=== PATIENT | male | born 1965 | race Caucasian/White ===

== ENCOUNTER 2018-03-25 14:20 | Inpatient (IN) | payer MEDICAID ==
[2018-03-25] VITALS (22 sets, daily range): BP systolic 91–203; BP diastolic 61–120
[~2018-03-25] VITALS: Ht 182.9 cm; Wt 94.3 kg
--- NOTE | 2018-03-25 14:28 | NUR ---
PT BROUGHT IN BY PARAMEDICS FOR LOW BLOOD SUGAR PT NOTED TO HAVE ASCITES IN ABDOMINAL REGION PIV ESTABLISHED IN LEFT AC BY PARAMEDICS. PT SET UP N MONITOR AND POCT BEING DONE.
[2018-03-25] MEDS ORDERED: INSULIN REGULAR, HUMAN 100 UNIT/ML 10 ML VIAL IV ONE (14:30)
[2018-03-25] MEDS ORDERED: IV NS 0.9% 1,000 ML BAG IV ONE ×3 (14:30→15:30)
--- NOTE | 2018-03-25 14:30 | NUR ---
POCT BLOOD SUGAR 438 MD AWARE
--- NOTE | 2018-03-25 15:25 | NUR ---
ZHANG PLACED URINE SAMPLE SENT TO LAB
[2018-03-25] MEDS ORDERED: PIPERACILLIN /TAZOBACTAM 3.375 G in IV D5W 50 ML IV ONE (15:30)
[2018-03-25] MEDS ORDERED: VANCOMYCIN 1 GM in IV D5W 250 ML IV ONE (15:30)
--- NOTE | 2018-03-25 16:13 | NUR ---
VITAL SIGNS UPDATED MD BROCK AWARE OG HR 150 AND ABNORMAL LAB VALUES PT GIVEN 3 LITERS OF NORMAL SALINE BOLUS.
[2018-03-25 16:15] LABS: BASOPHILS % (AUTO) 0.1 % (0.0-2.0); HEMATOCRIT 41 % (39-51); HEMOGLOBIN 13.4 g/dL (13.5-17.5); LYMPHOCYTES # (AUTO) 0.5 /CMM (0.8-4.8); LYMPHOCYTES % (AUTO) 1.3 % (20.0-44.0); MEAN CORPUSCULAR HGB CONC 33 g/dl (31.0-36.0); MEAN CORPUSCULAR VOLUME 90 fL (80-96); MONOCYTES # (AUTO) 1.5 /CMM (0.1-1.30); MONOCYTES % (AUTO) 4.1 % (2.0-12.0); NEUTROPHILS # (AUTO) 33.5 /CMM (1.8-8.9); NEUTROPHILS % (AUTO) 93.5 % (43.0-81.0); RED BLOOD CELL COUNT(AUTO) 4.52 MIL/uL (4.5-6.0)
[2018-03-25 16:21] LABS: SERUM AMMONIA < 10 umol/L (11-32)
[2018-03-25 16:24] LABS: PLATELET COUNT (AUTO) 48 /CMM (150-450); WHITE BLOOD COUNT (AUTO) 35.8 K/uL (4.3-11.0)
[2018-03-25 16:30] LABS: ACETAMINOPHEN 2 ug/ml (10-30); ALANINE AMINOTRANSFERASE 38 U/L (12-78); ALKALINE PHOSPHATASE 307 U/L (46-116); ASPARTATE AMINOTRANSFERASE 46 U/L (15-37); BAND % (MANUAL) 11 % (0.0-5.0); BILIRUBIN,DIRECT 0.2 mg/dL (0.0-0.2); BILIRUBIN,TOTAL 0.6 mg/dL (0.2-1.0); CALCIUM, SERUM 7.9 mg/dL (8.5-10.1); CARBON DIOXIDE 19 mmol/L (21-32); CHLORIDE 92 mmol/L (98-107); CREATININE 1.4 mg/dL (0.6-1.3); LYMPHOCYTES % (MANUAL) 3 % (16-48); MONOCYTES % (MANUAL) 3 % (0-11.0); NEUTROPHILS % (MANUAL) 83 (42-76); POTASSIUM 4.3 mmol/L (3.5-5.1); SALICYLATE 2.9 mg/dL (2.8-20.0); SODIUM SERUM 129 mmol/L (136-145); TOTAL PROTEIN, SERUM 5.6 g/dL (6.4-8.2); UREA NITROGEN, BLOOD 27 mg/dL (7-18)
[2018-03-25 16:31] LABS: THYROID STIMULATING HORMONE 1.026 uIU/mL (0.358-3.74)
[2018-03-25 16:32] LABS: ALCOHOL, BLOOD < 3 mg/dL (0-0)
[2018-03-25 16:33] LABS: ALBUMIN 1.2 g/dL (3.4-5.0); GLUCOSE 353 mg/dL (74-106)
--- NOTE | 2018-03-25 16:42 | NUR ---
CALLED AIR EXPORT AGENT SURGEON DR JOSHI ON THE PHONE WITH DR BROCK.
--- NOTE | 2018-03-25 16:50 | NUR ---
CALLED NURSING FORKLIFT WHEEL LOADER REQUESTING AN ICU BED.
[2018-03-25] MEDS ORDERED: ALBUMIN 25% 12.5 GM/50 ML BOTTLE IV ONE (17:00)
[2018-03-25 17:10] LABS: APPEARANCE,URINE Cloudy (CLEAR); BILIRUBIN,URINE SMALL (NEGATIVE); BLOOD, URINE Moderate Ery/uL (NEGATIVE); COLOR,URINE Yellow (YELLOW); KETONES,URINE 80 (NEGATIVE); LEUKOCYTE ESTERASE ,URINE Small (NEGATIVE); NITRITE, URINE Negative (NEGATIVE); PH,URINE 5.5 (5.0-8.0); PROTEIN,URINE 30 mg/dl (NEGATIVE); UGLUCOSE 500 MG/DL mg/dL (NEGATIVE); UROBILINOGEN,URINE 0.2 EU/dL (0.2)
[2018-03-25 17:23] LABS: WBC,URINE TOO NUMEROUS TO COUN /HPF (0-3)
[2018-03-25 17:24] LABS: BACTERIA,URINE Many /HPF (None Seen); SQUAMOUS EPITHELIAL CELL,UR Few /HPF (None Seen)
[2018-03-25] MEDS ORDERED: Z GUARD REMEDY 2 OZ OINT TP PRN (17:30)
[2018-03-25] MEDS ORDERED: HYDROCODONE/APAP 5/325MG 1 EACH TABLET PO PRN (17:30)
[2018-03-25] MEDS ORDERED: IV NS 0.9% 1,000 ML IV SCH (17:30)
[2018-03-25] MEDS ORDERED: MAGNESIUM HYDROXIDE 30 ML UDC PO PRN (17:30)
[2018-03-25] MEDS ORDERED: ONDANSETRON HCL/PF 4 MG/2 ML VIAL IVP PRN (17:30)
[2018-03-25] MEDS ORDERED: ALBUMIN 25% 50 GM in PREMIX 1 EA IV ONE (17:30)
[2018-03-25] MEDS ORDERED: ACETAMINOPHEN 325 MG TABLET PO PRN (17:30)
[2018-03-25] MEDS ORDERED: ZOLPIDEM TARTRATE 5 MG TABLET PO PRN (17:30)
[2018-03-25] MEDS ORDERED: MAG HYDROX/AL HYDROX/SIMETH 30 ML UDC PO PRN (17:30)
[2018-03-25] MEDS ORDERED: ANESTHESIA TRAY IN PYXIS 1 EA TRAY MC ONE (17:48)
[2018-03-25] MEDS ORDERED: FEE PK DOSING 1 MIN EA MC ONE (17:52)
[2018-03-25] MEDS ORDERED: ACETAMINOPHEN ES 500 MG TABLET PO PRN (18:00)
--- NOTE | 2018-03-25 18:02 | NUR ---
RN REPORT GOIVEN TO KRISTY CHIP APPLYING MACHINE TENDER PT ADMITTED TO 257 GAVE REPORT TO OR TEAM STATED TO TAKE PT UP TO ICU TO START DKA PROTOCOL
[2018-03-25] MEDS ORDERED: ACETAMINOPHEN 650 MG/SUPP.RECT RC ONE (18:05)
[2018-03-25] MEDS ORDERED: ROCURONIUM BROMIDE 50 MG/5 ML ONE (18:23)
[2018-03-25] MEDS ORDERED: MIDAZOLAM HCL 2 MG/2ML VIAL ONE (18:23)
[2018-03-25] MEDS ORDERED: INSULIN REGULAR, HUMAN 100 UNIT in IV NS 0.9% 99 ML IV PRN ×2 (18:30)
[2018-03-25] MEDS ORDERED: ACETAMINOPHEN 650 MG/SUPP.RECT RC PRN (18:30)
[2018-03-25] MEDS ORDERED: BACITRACIN 50000 UNITS/VIAL ONE (18:48)
[2018-03-25] MEDS ORDERED: BUPIVACAINE MPF 0.5% W/EPI INJ 30 ML VIAL ONE (18:48)
[2018-03-25] MEDS ORDERED: LIDOCAINE HCL/PF 1% 30 ML SDV ONE (18:48)
[2018-03-25] MEDS ORDERED: FENTANYL PF 100MCG/2ML AMPUL ONE (19:20)
--- NOTE | 2018-03-25 20:20 | NUR ---
PT ORALLY INTUBATED FROM O.R. PER DR LUTHER Vivar. PLACEMENT 7.5 @23CM LIP-LINE PLACE ON MECH VENT WITH THE FOLLOWING SETTING AC 12R 600VT 40%O2 +5PEEP. PT FIO2 INCREASED TO 60% SPO2 88% ON 40%FIO2. PT CURRENT SPO2 97%. BREATH SOUNDS CLEAR BILATERALLY WITH SYMMETRICAL CHEST RISE. PT SPUTUM SAMPLE ALSO COLLECTED, APPROX. 10CC OF THIN SANTIAGO/WHITE SECRETIONS DRAWN. RAMIRO TRACEY MADE AWARE AND LAB CALLED TO COLLECT SAMPLE. PT AMBU BAG AT BEDSIDE, MECH VENT PLUGGED INTO RED OUTLET, ALARMS SET/AUDIBLE AND BRAKES LOCKED. PT CURRENTLY TOLERATING SETTINGS AND PENDING XRAY REPORT TO CONFIRM PLACEMENT.
[2018-03-25] MEDS: BLOOD SUGAR DIAGNOSTIC 1 EACH STRIP IN SCH ×4 (20:58→23:19)
[2018-03-25] MEDS: PROPOFOL 100 ML IV PRN (20:59)
[2018-03-25] MEDS: ZOSYN IVPB 3.375 G in IV D5W 50ml IV SCH (21:00)
[2018-03-25] MEDS ORDERED: IV NS 0.9% 1,000 ML IV PRN (22:30)
--- NOTE | 2018-03-25 22:30 | NUR ---
MANAGER ASSET MANAGEMENT NOTES RECEIVED PT FROM OR S/P LAPAROSCOPIC ABSCESS DRAIN. PT IS INTUBATED WITH 7.5 ETT AT 23 CM AT LIPS. NOLA WELL AT CURRENT SETTINGS. FIO2 CURRENTLY 65%, SPOT >95%, WILL ATTEMPT TO DECREASE TOLERATED. ZHANG CATH IN PLACE, DRAINING TO CLEAR ALETHEA URINE WITH LOW OUTPUT. IV SITE AT RFA AND LFA INTACT, PATENT AND CLEAN. MILVIA DRAIN AT MEDIAL ABDOMEN WITH SANGUINEUS OUTPUT. PROPOFOL ORDERED FOR SEDATION. CURRENTLY RUNNING NS BOLUS FROM OR AND INSULIN DRIP AT 5.07 UNITS/HR WITH HOURLY GLUCOSE CHECKS. SURGICAL DRESSING INTACT AND CLEAN. NO S/S OF HEMORRHAGE. SIDE RAILS X3, HOB ELEVATED, NO SKIN ISSUES NOTED. DR SLOAN AND RECOVERY NURSE AT BEDSIDE.
[2018-03-26] VITALS (112 sets, daily range): BP systolic 77–138; BP diastolic 48–87
[2018-03-26] MEDS: BLOOD SUGAR DIAGNOSTIC 1 EACH STRIP IN SCH ×15 (00:25→20:30)
[2018-03-26 00:44] LABS: CALCIUM, SERUM 7.7 mg/dL (8.5-10.1); CREATININE 1.6 mg/dL (0.6-1.3); POTASSIUM 4.7 mmol/L (3.5-5.1)
--- NOTE | 2018-03-26 02:00 | NUR ---
FIELD HOCKEY COACH NOTES PATIENT'S BLOOD PRESSURE DECREASED DUE TO PROPOFOL DRIP WITHOUT DECREASE IN RESPIRATORY RATE OR HEART RATE. PATIENT IS MOST LIKELY IN PAIN. VERONICA INOCULATOR MADE AWARE, NEW ORDER FOR DILAUDID RECEIVED.
[2018-03-26] MEDS: HYDROMORPHONE 1 MG/1 ML DISP.SYRIN IV PRN (02:28)
[2018-03-26] MEDS: ZOSYN IVPB 3.375 G in IV D5W 50ml IV SCH ×2 (02:42→09:14)
[2018-03-26] MEDS ORDERED: VANCOMYCIN 1.25 GM in IV D5W 500 ML IV SCH ×2 (03:00→21:00)
--- NOTE | 2018-03-26 03:30 | NUR ---
SPEECH/LANGUAGE THERAPIST NOTES PATIENT SPIKED A FEVER OF 101.5, TYLENOL SUPPOSITORY ADMINISTERED.
[2018-03-26 05:16] LABS: CALCIUM, SERUM 7.6 mg/dL (8.5-10.1); CARBON DIOXIDE 25 mmol/L (21-32); CHLORIDE 98 mmol/L (98-107); CREATININE 2.1 mg/dL (0.6-1.3); GLUCOSE 240 mg/dL (74-106); MAGNESIUM 1.8 mg/dL (1.8-2.4); PHOSPHORUS 2.7 mg/dL (2.5-4.9); POTASSIUM 4.3 mmol/L (3.5-5.1); SODIUM SERUM 134 mmol/L (136-145); UREA NITROGEN, BLOOD 36 mg/dL (7-18)
[2018-03-26 05:25] LABS: LDL 12 mg/dL (0-99); TRIGLYCERIDES 206 mg/dL (30-150)
[2018-03-26 05:26] LABS: HDL CHOLESTEROL < 10 mg/dL (40-60)
[2018-03-26 05:27] LABS: CHOLESTEROL < 50 mg/dL (<200)
[2018-03-26 05:33] LABS: BASOPHILS # (AUTO) 0.1 /CMM (0.0-0.2); BASOPHILS % (AUTO) 0.2 % (0.0-2.0); EOSINOPHILS % (AUTO) 4.5 % (0.0-6.0); HEMATOCRIT 35 % (39-51); HEMOGLOBIN 11.4 g/dL (13.5-17.5); LYMPHOCYTES # (AUTO) 0.7 /CMM (0.8-4.8); LYMPHOCYTES % (AUTO) 2.9 % (20.0-44.0); MEAN CORPUSCULAR HGB CONC 33 g/dl (31.0-36.0); MEAN CORPUSCULAR VOLUME 90 fL (80-96); MONOCYTES # (AUTO) 0.9 /CMM (0.1-1.30); MONOCYTES % (AUTO) 3.4 % (2.0-12.0); NEUTROPHILS # (AUTO) 22.8 /CMM (1.8-8.9); RED BLOOD CELL COUNT(AUTO) 3.89 MIL/uL (4.5-6.0); WHITE BLOOD COUNT (AUTO) 25.6 K/uL (4.3-11.0)
--- NOTE | 2018-03-26 05:40 | NUR ---
TELEVISION ANTENNA INSTALLER NOTES CRITICAL LAB PLATELETS: 12 VERONICA BOWL TOPPER CONTACTED AND MADE AWARE. ALSO MADE AWARE OF PT'S LOW SBP IN 80s. NEW ORDER FOR PLATELETS ONLY.
[2018-03-26 05:56] LABS: PLATELET COUNT (AUTO) 12 /CMM (150-450)
[2018-03-26] MEDS ORDERED: IV D5/0.45 NACL 1,000 ML IV PRN (06:00)
[2018-03-26 06:12] LABS: BAND % (MANUAL) 19 % (0.0-5.0); LYMPHOCYTES % (MANUAL) 4 % (16-48); METAMYELOCYTES % 4 % (0-0); MONOCYTES % (MANUAL) 3 % (0-11.0); NEUTROPHILS % (MANUAL) 68 (42-76)
[2018-03-26 06:13] LABS: MYELOCYTES % 2 % (0-0)
[2018-03-26] MEDS ORDERED: IV NS 0.9% 1,000 ML IV PRN (06:13)
[2018-03-26] MEDS: HYDROCORTISONE SOD SUCCINATE 100 MG/2 ML VIAL IV SCH ×3 (06:28→16:30)
--- NOTE | 2018-03-26 06:30 | NUR ---
PLATER APPRENTICE NOTES DR ROUSE AT BEDSIDE. PATIENT REPORT GIVEN, NEW ORDERS FOR LABS AND IVF RECEIVED. IVF ORDER: 1L NS BOLUS, FOLLOWED BY 1L AT 200 ML/HR. TOTAL OF 2 LITERS OF NS.
[2018-03-26 06:43] LABS: ABG BASE EXCESS -2.9 mmol/L; ABG OXYGEN SATURATION 96.8 % (92.0-98.5); ABG PCO2 40.8 mmHg (35.0-45.0); ABG PH 7.357 (7.350-7.450); ABG PO2 95.3 mmHg (75.0-100.0); AaDO2 179.1 mmHg; COHb 0.3 % (0.5-1.5); MetHb 0.5 % (0.0-1.5); PEEP,BG 5 cm H2O; SITE, ABG Right Radial; VT, ABG 600 mL
[2018-03-26] MEDS ORDERED: IV NS 0.9% 1,000 ML IV ONE (07:00)
[2018-03-26 07:39] LABS: THYROID STIMULATING HORMONE 1.414 uIU/mL (0.358-3.74)
--- NOTE | 2018-03-26 07:48 | NUR ---
INITIAL ENROLLMENT CLERK NOTE RCVD PT OBTUNDED, PER REPORT OFF SEDATION SINCE AROUND 0400. PT NOT RESPONDING TO PAINFUL STIMULI, APPEARS DIAPHORETIC WITH LOW GRADE TEMPERATURE. BLOOD GLUCOSE CHECKED AND NOT LOW. ST ON MONITOR. INTUBATED ETT 7.5 23 AT LIP TOLERATING ORDERED VENT SETTINGS. CLEARM THIN SECRETIONS UPON SUCTIONING. ZHANG TO GRAVITY WITH SMALL AMOUNT OF ALETHEA COLORED URINE. SURGICAL DRESSING OVER ABDOMINAL AREA APPEARS C/D/I, MILVIA DRAIN WITH SANGUINEOUS FLUID OBSERVED. IV SITES C/D/I/PATENT. NO S/O INFILTRATION/PHLEBITIS OBSERVED IVF INFUSING. INSULIN DRIP INFUSING PER PROTOCOL. PT NPO. WILL CONTINUE TO MONITOR PT FOR SAFETY AND COMFORT. BED IN LOW AND LOCKED POSITION.
[2018-03-26] MEDS ORDERED: IV NS 0.9% 500 ML IV ONE (09:00)
[2018-03-26] MEDS: DAKINS QUARTER STRENGTH (0.125%) 480 ML BOTTLE TOP SCH (09:15)
--- NOTE | 2018-03-26 09:28 | NUR ---
LANDING SCALER NOTE PT'S OFF SEDATION PER REPORT SINCE 399. Addendum: 03/26/18 at 3802 by TRACIE KENNEY RN Amended: Links added.
[2018-03-26 10:05] LABS: D-DIMER 3.3 mg/L(FEU (0.17-0.50)
--- NOTE | 2018-03-26 10:11 | NUR ---
TAN ROOM SUPERVISOR NOTE PT'S ADOPTIVE DAD, TORO CALLED [phone] REQUESTING CONSENT FOR PICC LINE PLACEMENT AND TRANSFUSION OF BLOOD PRODUCTS. HE WAS UPDATED REGARDING PT'S CONDITION AND ENCOURAGED TO CALL TO CHECK ON PT'S STATUS SINCE HE LIVES IN [place]. CONSENTS OBTAINED AND CO-SIGNED WITH A SECOND RN.
[2018-03-26] MEDS ORDERED: BUMETANIDE INJ 0.25 MG/ML VIAL IV ONE (11:00)
[2018-03-26] MEDS: NOREPINEPHRINE 16 MG in IV D5W 500 ML IV PRN (11:28)
[2018-03-26] MEDS ORDERED: DEXTROSE 50%-WATER 50 ML DISP.SYRIN IV PRN (12:00)
[2018-03-26] MEDS ORDERED: DOSE PER PHARMACY (MD SPECIFY MEDICATION) 1 EA XX PRN (12:30)
[2018-03-26] MEDS: IV D5/0.45 NACL 1,000 ML IV PRN (12:44)
[2018-03-26] MEDS ORDERED: PIPERACILLIN /TAZOBACTAM 3.375 G in IV D5W 100 ML IV SCH (13:00)
[2018-03-26 13:02] LABS: BILIRUBIN,TOTAL 2.6 mg/dL (0.2-1.0); CALCIUM, SERUM 7.1 mg/dL (8.5-10.1); CREATININE 2.7 mg/dL (0.6-1.3); POTASSIUM 4.7 mmol/L (3.5-5.1)
[2018-03-26 13:04] LABS: BASOPHILS % (AUTO) 0.1 % (0.0-2.0); EOSINOPHILS % (AUTO) 5.6 % (0.0-6.0); HEMATOCRIT 36 % (39-51); HEMOGLOBIN 11.6 g/dL (13.5-17.5); LYMPHOCYTES # (AUTO) 0.8 /CMM (0.8-4.8); LYMPHOCYTES % (AUTO) 2.4 % (20.0-44.0); MEAN CORPUSCULAR HGB CONC 32 g/dl (31.0-36.0); MEAN CORPUSCULAR VOLUME 91 fL (80-96); MONOCYTES # (AUTO) 1.2 /CMM (0.1-1.30); MONOCYTES % (AUTO) 3.8 % (2.0-12.0); NEUTROPHILS # (AUTO) 28.5 /CMM (1.8-8.9); NEUTROPHILS % (AUTO) 88.1 % (43.0-81.0); RED BLOOD CELL COUNT(AUTO) 3.93 MIL/uL (4.5-6.0)
[2018-03-26 13:19] LABS: WHITE BLOOD COUNT (AUTO) 32.3 K/uL (4.3-11.0)
[2018-03-26 13:20] LABS: PLATELET COUNT (AUTO) 27 /CMM (150-450)
[2018-03-26 13:25] LABS: BAND % (MANUAL) 5 % (0.0-5.0); LYMPHOCYTES % (MANUAL) 3 % (16-48); MONOCYTES % (MANUAL) 7 % (0-11.0); NEUTROPHILS % (MANUAL) 85 (42-76)
[2018-03-26 13:59] LABS: ALBUMIN 1.3 g/dL (3.4-5.0)
[2018-03-26] MEDS: MICAFUNGIN SODIUM 100 MG in IV NS 0.9% 100 ML IV SCH (14:26)
[2018-03-26] MEDS ORDERED: PHYTONADIONE 5 MG TABLET PO ONE (14:30)
[2018-03-26] MEDS: MEROPENEM 1 G in IV NS 0.9% 100 ML IV SCH (14:40)
[2018-03-26] MEDS: INSULIN REGULAR, HUMAN 100 UNIT/ML 3 ML VIAL SQ PRN ×2 (16:45→20:32)
[2018-03-26] MEDS ORDERED: PHYTONADIONE INJ 10 MG/1 ML AMPUL IV ONE (17:00)
--- NOTE | 2018-03-26 17:46 | NUR ---
RACKING MACHINE OPERATOR NOTE PT REMAINS CRITICAL, DIAPHORETIC AT TIMES WITH LOW GRADE TEMPS DURING THE DAY. REMAINS UNRESPONSIVE WITH WEAK GAG/COUGH REFLEX. ST ON MONITOR. VENT SETTINGS ADJUSTED. ZHANG TO GRAVITY WITH LOW URINARY OUTPUT. DR. JOSHI AWARE. WOUND CARE DONE ORDERED. IV SITES C/D/I/PATENT NO S/O INFILTRATION/PHLEBITIS OBSERVED IVF INFUSING ORDERED. PT OFF INSULIN GTT AND ON AGGRESSIVE SSI. REMAINS NPO, MILVIA DRAIN COMPRESSED WITH SANGUINEOUS FLUID OBTAINED. PT'S CARE WILL BE ENDORSED TO SUPERVISOR FERTILIZER RN FOR CONTINUITY OF CARE. BED IN LOW AND LOCKED POSITION.
--- NOTE | 2018-03-26 18:07 | NUR ---
RT NOTE PT REMAINS MECHANICALLY VENTILATED VIA 7.5 ETT 23 CM AT LIP. CUFF INFLATED. TUBE SECURE. VENTILATOR SETTINGS PRESCRIBED. ALARMS SET PER PROTOCOL AND AUDIBLE. VENT PLUGGED IN TO RED OUTLET. AMBU BAG AT BED SIDE. NO DISTRESS NOTED AT MOMENT. Addendum: 03/26/18 at 1808 by BLANCA DENISE RT Amended: Links added.
--- NOTE | 2018-03-26 19:50 | NUR ---
PT RCVD ORALLY INTUBATED WITH 7.5 ETT@ 23 CM LIP LINE ON THE VENT WITH NOTED SETTINGS. PT IS UNRESPONSIVE , SUCTIONED SMALL AMOUNT OF YELLOW /SANTIAGO SECRETIONS. VENT PLUGGED INTO RED OUTLET, VENT ALARMS ON AND AUDIBLE, CUFF INFLATED, AMBU BAG AT BEDSIDE. WILL CONTINUE TO MONITOR.
[2018-03-27] VITALS (113 sets, daily range): BP systolic 79–125; BP diastolic 46–76
[2018-03-27] MEDS: IV D5/0.45 NACL 1,000 ML IV PRN (00:15)
[2018-03-27] MEDS: INSULIN REGULAR, HUMAN 100 UNIT/ML 3 ML VIAL SQ PRN ×6 (01:36→22:10)
[2018-03-27] MEDS: BLOOD SUGAR DIAGNOSTIC 1 EACH STRIP IN SCH ×6 (01:38→21:38)
--- NOTE | 2018-03-27 02:00 | NUR ---
WEB PRODUCER RENDERED COMPLETE BED BATH AND ORAL CARE; PT TOLERATED WELL. DRESSING C/D/I.
[2018-03-27] MEDS ORDERED: MEROPENEM 1 G VIAL IV ONE (03:08)
[2018-03-27] MEDS: MEROPENEM 1 G in IV NS 0.9% 100 ML IV SCH ×2 (03:09→13:11)
[2018-03-27 05:33] LABS: BILIRUBIN,TOTAL 3.7 mg/dL (0.2-1.0); CALCIUM, SERUM 7.3 mg/dL (8.5-10.1); MAGNESIUM 1.9 mg/dL (1.8-2.4); PHOSPHORUS 4.8 mg/dL (2.5-4.9); TOTAL PROTEIN, SERUM 5.5 g/dL (6.4-8.2)
[2018-03-27 05:54] LABS: ALBUMIN 1.3 g/dL (3.4-5.0)
[2018-03-27 06:01] LABS: BASOPHILS # (AUTO) 0.1 /CMM (0.0-0.2); BASOPHILS % (AUTO) 0.2 % (0.0-2.0); EOSINOPHILS % (AUTO) 3.5 % (0.0-6.0); HEMATOCRIT 40 % (39-51); HEMOGLOBIN 12.9 g/dL (13.5-17.5); LYMPHOCYTES # (AUTO) 0.6 /CMM (0.8-4.8); LYMPHOCYTES % (AUTO) 1.7 % (20.0-44.0); MEAN CORPUSCULAR HGB CONC 32 g/dl (31.0-36.0); MEAN CORPUSCULAR VOLUME 91 fL (80-96); MONOCYTES # (AUTO) 0.2 /CMM (0.1-1.30); MONOCYTES % (AUTO) 0.6 % (2.0-12.0); RED BLOOD CELL COUNT(AUTO) 4.41 MIL/uL (4.5-6.0)
[2018-03-27 06:10] LABS: PLATELET COUNT (AUTO) 4 /CMM (150-450)
[2018-03-27 06:23] LABS: BAND % (MANUAL) 59 % (0.0-5.0); LYMPHOCYTES % (MANUAL) 1 % (16-48); METAMYELOCYTES % 1 % (0-0); MYELOCYTES % 1 % (0-0); NEUTROPHILS % (MANUAL) 36 (42-76); PROMYELOCYTES % 1 % (0-0); REACTIVE LYMPHOCYTES 1 % (0-0)
--- NOTE | 2018-03-27 06:23 | NUR ---
NCQA SPECIALIST PT NOTED WITH TEMP 100.2 WITH COOLING MEASURES RENDERED MULTIPLE TIMES.
[2018-03-27 08:24] LABS: ABG BASE EXCESS -6.9 mmol/L; ABG OXYGEN SATURATION 95.9 % (92.0-98.5); ABG PH 7.356 (7.350-7.450); ABG PO2 83.1 mmHg (75.0-100.0); AaDO2 201.4 mmHg; COHb 0.4 % (0.5-1.5); MetHb 1.1 % (0.0-1.5); O2Hb 94.5 % (94.0-97.0); SITE, ABG Right Radial; VENT MODE, BG AC 12 600 +0 45% FIO2
[2018-03-27] MEDS: HYDROCORTISONE SOD SUCCINATE 100 MG/2 ML VIAL IV SCH ×3 (08:33→17:26)
[2018-03-27] MEDS: DAKINS QUARTER STRENGTH (0.125%) 480 ML BOTTLE TOP SCH (08:34)
[2018-03-27 08:43] LABS: D-DIMER 5.07 mg/L(FEU (0.17-0.50)
[2018-03-27] MEDS: IV LR 1000 ML 1,000 ML IV PRN ×2 (08:52→23:50)
--- NOTE | 2018-03-27 09:00 | NUR ---
RN NOTES PT SEEN BY DR. LINTON AWARE OF PT NOT HAVING URINE OUTPUT WILL CONTINUE TO MONITOR
--- NOTE | 2018-03-27 09:30 | NUR ---
RN NOTES PT SEEN BY DR MEDINA, RELAYED PT STATUS AND PT WITH NO URINE OUTPUT AT THIS TIME, PTS TYLENOL TO BE CHANGED TO SUPPOSITORY WILL CONTINUE TO MONITOR
[2018-03-27] MEDS: PROPOFOL 100 ML IV PRN ×4 (09:36→23:50)
[2018-03-27] MEDS ORDERED: ACETAMINOPHEN 650 MG/SUPP.RECT RC PRN (10:00)
[2018-03-27] MEDS: NOREPINEPHRINE 16 MG in IV D5W 500 ML IV PRN ×2 (11:40→19:48)
--- NOTE | 2018-03-27 11:56 | NUR ---
RN NOTES PATIENT RECEIVED, RESTING IN BED,CURRENTLY ON MECHANICAL VENTILATION TOLERATING AT THIS TIME. PT WITH ETT 7.5 23 CM AT LIP. IV ACCESS TO RFA AND LFA AND NIRALI PICC PATENT AND INTACT NO REDNESS OR INFILTRATION NOTED. PT TO BE SEEN BY DR. MEDINA TODAY. PT WITH NO URINE OUTPUT AT THIS TIME. KEPT CLEAN DRY AND COMFORTABLE CALL LIGHT WITHIN EASY REACH WILL CONTINUE TO MONITOR Addendum: 03/27/18 at 1200 by JOSE KENDRICK RN CORRECTION OF ENTRY TIME OF ENDORSEMENT 0720
[2018-03-27] MEDS: MICAFUNGIN SODIUM 100 MG in IV NS 0.9% 100 ML IV SCH (13:30)
[2018-03-27] MEDS ORDERED: LEVOFLOXACIN 500 MG /D5W 100ML 500 MG in PREMIX 1 EA IV ONE (16:00)
--- NOTE | 2018-03-27 17:15 | NUR ---
RN NOTES PT SEEN AND EXAMINED BY DR HUNTER RELAYED PT STATUS WITH ORDERS FOR MAGNESIUM REPLACEMENT AND CONTINUE TO MONITOR AT THIS TIME SLIDING SCALE INSULIN HELD PT REFUSING DINNER AT THIS TIME WILL CONTINUE TO MONITOR Addendum: 03/27/18 at 1941 by JOSE KENDRICK RN INCORRECT ENTRY
[2018-03-27] MEDS: CEFTRIAXONE 2 G in IV D5W 100 ML IV SCH (17:47)
--- NOTE | 2018-03-27 19:30 | NUR ---
CATTLE CARE WORKER RCD PT W/DX SEPSIS; POD #2 S/P EXP LAP AND I&D ABD WALL ABSCESS; DRESSING C/D/I. PT IS COMATOSE; DOES NOT RESPOND TO ANY PAIN; PUPILS FIXED SIZE 3. ST 120s ON MONITOR. TEMP 102.5 INITIATED COOLING MEASURE; TYLENOL NOT YET DUE. INTUBATED 7.5 @ 23 W/VENT SETTINGS AC 12 600 45; RENDERED ORAL CARE REMOVING DRY CRUSTED BLOOD FROM MOUTH. ZHANG CATHETER IN PLACE W/NO URINE OUTPUT AT THIS TIME; AWARE. NIRALI PICC PATENT WITH LR @ 100 ML/HR AND LEVOPHED AT 8 MCG/MIN; RFA 18 G W/PROPOFOL AT 35 MCG/KG/MIN; SEDATION DUE TO INCREASED RR.
--- NOTE | 2018-03-27 19:41 | NUR ---
RN NOTES PATIENT RESTING IN BED,CURRENTLY ON MECHANICAL VENTILATION TOLERATING AT THIS TIME. PT WITH ETT 7.5 23 CM AT LIP. IV ACCESS TO RFA AND LFA AND NIRALI PICC PATENT AND INTACT NO REDNESS OR INFILTRATION NOTED. PT TO BE SEEN BY DR. MEDINA TODAY RELAYED PT STATUS TO ID, NEPHROLOGY, ONCOLOGY AND SURGICAL DISCIPLINES WITH CONTINUED ORDERS. PT WITH NO URINE OUTPUT AT THIS TIME. KEPT CLEAN DRY AND COMFORTABLE CALL LIGHT WITHIN EASY REACH WILL CONTINUE TO MONITOR ENDORSED TO ONCOMING SHIFT FOR CONTINUITY OF CARE
[2018-03-27] MEDS ORDERED: IV NS 0.9% 100 ML IV PRN (20:30)
--- NOTE | 2018-03-27 21:16 | NUR ---
HEADING SAW OPERATOR BROTHER AND NEPHEW AT BEDSIDE; UPDATED WITH PLAN OF CARE. FAMILY KNOWS LIMITED INFORMATION ON PTS MEDICAL HISTORY HOWEVER FAMILY DOES STATE PT USED COCAINE AND WAS A "HEAVY DRINKER" ABOUT 8 YEARS AGO.
[2018-03-28] VITALS (116 sets, daily range): BP systolic 18–136; BP diastolic 58–90
[2018-03-28] MEDS: BLOOD SUGAR DIAGNOSTIC 1 EACH STRIP IN SCH ×15 (01:39→23:08)
[2018-03-28] MEDS: INSULIN REGULAR, HUMAN 100 UNIT/ML 3 ML VIAL SQ PRN ×3 (01:59→08:46)
[2018-03-28 05:13] LABS: BILIRUBIN,TOTAL 4.8 mg/dL (0.2-1.0); CALCIUM, SERUM 7.1 mg/dL (8.5-10.1); CREATININE 5.3 mg/dL (0.6-1.3); MAGNESIUM 1.9 mg/dL (1.8-2.4); PHOSPHORUS 4.4 mg/dL (2.5-4.9); POTASSIUM 5.2 mmol/L (3.5-5.1)
[2018-03-28 05:44] LABS: BASOPHILS % (AUTO) 0.2 % (0.0-2.0); EOSINOPHILS % (AUTO) 0.1 % (0.0-6.0); HEMATOCRIT 32 % (39-51); HEMOGLOBIN 10.3 g/dL (13.5-17.5); LYMPHOCYTES # (AUTO) 0.7 /CMM (0.8-4.8); LYMPHOCYTES % (AUTO) 3.1 % (20.0-44.0); MEAN CORPUSCULAR HGB CONC 33 g/dl (31.0-36.0); MEAN CORPUSCULAR VOLUME 91 fL (80-96); MONOCYTES # (AUTO) 0.3 /CMM (0.1-1.30); MONOCYTES % (AUTO) 1.4 % (2.0-12.0); NEUTROPHILS # (AUTO) 21.8 /CMM (1.8-8.9); NEUTROPHILS % (AUTO) 95.2 % (43.0-81.0); RED BLOOD CELL COUNT(AUTO) 3.48 MIL/uL (4.5-6.0); WHITE BLOOD COUNT (AUTO) 22.8 K/uL (4.3-11.0)
[2018-03-28 05:56] LABS: PLATELET COUNT (AUTO) 6 /CMM (150-450)
[2018-03-28] MEDS: PROPOFOL 100 ML IV PRN ×2 (06:24→15:22)
--- NOTE | 2018-03-28 06:30 | NUR ---
SWEEP MOLDER CRITICAL VALUES RELAYED TO MARCELLUS PANTRY GOODS WORKER WITH ORDERS TO TRANSFUSE ONE UNIT PLATELET.
--- NOTE | 2018-03-28 07:19 | NUR ---
MANAGER GENERATION BLOOD BANK WILL CALL WHEN PLATELETS AVAILABLE.
--- NOTE | 2018-03-28 07:20 | NUR ---
FURNITURE SERVICER PT NOTED WITH YELLOW MUCOID BOWEL MOVEMENT. PT ALSO NOTED BLEEDING FROM BACK OF LEFT UPPER LEG; AREA NOTED RED AND BLEEDING. PLACED A MEPILEX. NOTIFIED DAY SHIFT NURSE FOR FURTHER ORDERS.
--- NOTE | 2018-03-28 07:30 | NUR ---
RN NOTES PATIENT RECEIVED, RESTING IN BED,CURRENTLY ON MECHANICAL VENTILATION TOLERATING AT THIS TIME. PT WITH ETT 7.5 23 CM AT LIP. IV ACCESS TO RFA AND LFA AND NIRALI PICC PATENT AND INTACT NO REDNESS OR INFILTRATION NOTED. PT WITH NO URINE OUTPUT AT THIS TIME MD AWARE.PT TO HAVE PLATELETS TRANSFUSED TODAY. KEPT CLEAN DRY AND COMFORTABLE CALL LIGHT WITHIN EASY REACH WILL CONTINUE TO MONITOR
[2018-03-28] MEDS ORDERED: VANCOMYCIN 1.25 GM in IV D5W 500 ML IV SCH (08:00)
[2018-03-28 08:06] LABS: IMMUNOGLOBULIN A, SERUM 330 mg/dL (90-386); IMMUNOGLOBULIN G, SERUM 1049 mg/dL (700-1600); IMMUNOGLOBULIN M, SERUM 68 mg/dL (20-172)
[2018-03-28 08:24] LABS: BAND % (MANUAL) 8 % (0.0-5.0); LYMPHOCYTES % (MANUAL) 4 % (16-48); MONOCYTES % (MANUAL) 2 % (0-11.0); NEUTROPHILS % (MANUAL) 86 (42-76)
[2018-03-28] MEDS: DAKINS QUARTER STRENGTH (0.125%) 480 ML BOTTLE TOP SCH (08:38)
[2018-03-28] MEDS: HYDROCORTISONE SOD SUCCINATE 100 MG/2 ML VIAL IV SCH ×3 (08:46→17:06)
[2018-03-28 09:31] LABS: ABG BASE EXCESS -6.7 mmol/L; ABG OXYGEN SATURATION 95.4 % (92.0-98.5); ABG PCO2 30.6 mmHg (35.0-45.0); ABG PH 7.373 (7.350-7.450); ABG PO2 79.3 mmHg (75.0-100.0); AaDO2 170.7 mmHg; COHb 0.3 % (0.5-1.5); MetHb 0.8 % (0.0-1.5); O2Hb 94.4 % (94.0-97.0); PEEP,BG 0 cm H2O; SITE, ABG Right Radial; VENT MODE, BG AC 12 600 40%; VT, ABG 600 mL
[2018-03-28] MEDS: IV LR 1000 ML 1,000 ML IV PRN ×2 (10:09→21:09)
--- NOTE | 2018-03-28 10:30 | NUR ---
RN NOTES FAMILY AT BEDSIDE WILL CONTINUE TO MONITOR
[2018-03-28] MEDS: INSULIN REGULAR, HUMAN 100 UNIT in IV NS 0.9% 99 ML IV PRN ×4 (10:39→21:58)
--- NOTE | 2018-03-28 11:30 | NUR ---
RN NOTES PT SEEN BY DR. LINTON WITH ORDERS TO OBTAIN CONSENT FOR HEMODIALYSIS CATHETER PLACEMENT AND INITIATION OF DIALYSIS TREATMENT WILL CONTINUE TO FOLLOW UP
[2018-03-28] MEDS ORDERED: PHYTONADIONE INJ 10 MG/1 ML AMPUL SQ ONE (16:00)
[2018-03-28] MEDS: LEVOFLOXACIN 250 MG /D5W 50 ML 250 MG in PREMIX 1 EA IV SCH (16:16)
--- NOTE | 2018-03-28 16:45 | NUR ---
RN NOTES 1885 DR GARCIA IN FACILITY INSERTED RIGHT FEMORAL CATHETER WITH NO COMPLICATIONS PER DR. LINTON PT TO HAVE DIALYSIS TODAY
[2018-03-28] MEDS: CEFTRIAXONE 2 G in IV D5W 100 ML IV SCH ×2 (17:12→17:31)
[2018-03-28] MEDS: NOREPINEPHRINE 16 MG in IV D5W 500 ML IV PRN (17:19)
[2018-03-28 18:42] LABS: D-DIMER 10.3 mg/L(FEU (0.17-0.50)
[2018-03-28] MEDS: IV NS 0.9% 500 ML BAG IV PRN (19:33)
--- NOTE | 2018-03-28 20:21 | NUR ---
RN NOTES PATIENT RESTING IN BED,CURRENTLY ON MECHANICAL VENTILATION TOLERATING AT THIS TIME. PT WITH ETT 7.5 23 CM AT LIP. IV ACCESS TO RFA AND LFA AND NIRALI PICC PATENT AND INTACT NO REDNESS OR INFILTRATION NOTED. PT WITH NO URINE OUTPUT AT THIS TIME MD AWARE. PER DR KAYLEE TOMPKINS TO GIVE PLASMA DIC PANEL RELAYED TO MD PRIOR TO ADMINISTRATION OF PLASMA. PT TO HAD PLATELETS TRANSFUSED TODAY. PT S/P RIGHT FEMORAL CATHETER PLACEMENT FOR DIALYSIS TREATMENT PLACED TODAY ORDERED BY DR. LINTON PT TO HAVE DIALYSIS TREATMENT TONIGHT. KEPT CLEAN DRY AND COMFORTABLE CALL LIGHT WITHIN EASY REACH WILL CONTINUE TO MONITOR ENDORSED TO NEXT SHIFT FOR CONTINUITY OF CARE Addendum: 03/28/18 at 2022 by JOSE KENDRICK RN RAMIRO NOTES TIME OF ENDORSEMENT 1944
--- NOTE | 2018-03-28 21:00 | NUR ---
AOC PLANS INTELLIGENCE OFFICER NOTES HD NURSE BILL AT BEDSIDE. ALL PERTINENT LABS RELAYED. PATIENT STARTED ON HD, WILL CONTINUE TO CLOSELY MONITOR THE PATIENT
--- NOTE | 2018-03-28 23:00 | NUR ---
BLOGS MANAGER NOTES HD COMPLETE, TOLERATED WELL. 1 LITER OUTPUT. WILL CONTINUE TO CLOSELY MONITOR
--- NOTE | 2018-03-28 23:15 | NUR ---
DENTAL MOLD MAKER NOTES 2 UNITS [facility] INFUSED BY HD NURSE BILL DURING HEMODIALYSIS. PATIENT EXHIBITING NO S/S OF ADVERSE BLOOD TRANSFUSION REACTION. WILL CONTINUE TO CLOSELY MONITOR
--- NOTE | 2018-03-28 23:28 | NUR ---
INTERNATIONAL LOGISTICS MANAGER NOTES - [facility] TRANSFUSION #2 CALLED IT, SPOKE TO BLADIMIR REGARDING INABILITY TO CHART ON [facility] FOR TRANSFUSION, CALL BACK NUMBER GIVEN. PER BLADIMIR, HE HAS CONTACTED THE ON-CALL LABEL MACHINE OPERATOR, WHO WILL CALL SO SHORTLY REGARDING THE ISSUE. AWAITING CALL BACK
[2018-03-29] VITALS (107 sets, daily range): BP systolic 91–146; BP diastolic 61–95
--- NOTE | 2018-03-29 | NUR ---
RODEO PERFORMER NOTES RECEIVED CALL FROM IT, SPOKE TO LUIS E. STEP BY STEP DOCUMENTATION ON MEDITECH PERFORMED WITH VERIFICATION FROM [facility] VIA SCREEN MIRRORING, ABLE TO CHART TRANSFUSION. AFTER REFRESH, DOCUMENTATION REMAINS COMPLETE. HOWEVER, AFTER HANGING UP AND REFRESHING THE SCREEN AGAIN, PROBLEM WITH MEDITECH PERSISTS, STATUS SHOWING UP "ISSUED". CALLED IT AGAIN, SPOKE TO BLADIMIR. PER BLADIMIR, HE WILL NOTIFY [facility] TO CONTACT [facility]. AWAITING CALL BACK
[2018-03-29] MEDS: BLOOD SUGAR DIAGNOSTIC 1 EACH STRIP IN SCH ×25 (00:20→23:54)
--- NOTE | 2018-03-29 00:35 | NUR ---
PROJECT ARCHITECT NOTES RECEIVED CALL BACK FROM [facility]. [facility] NOW SHOWING STATUS "TRANSFUSED". PAPER CHARTING FOR TRANSFUSION DOCUMENTED AND LOCATED IN CHART FOR ADMINISTRATION TIMES, SEE PAPER CHART. CHARGE NURSE DOMINIQUE MADE AWARE. WILL CONTINUE TO CLOSELY MONITOR.
[2018-03-29 04:49] LABS: BASOPHILS % (AUTO) 0.2 % (0.0-2.0); EOSINOPHILS % (AUTO) 0.1 % (0.0-6.0); HEMATOCRIT 28 % (39-51); HEMOGLOBIN 9.3 g/dL (13.5-17.5); LYMPHOCYTES # (AUTO) 0.6 /CMM (0.8-4.8); LYMPHOCYTES % (AUTO) 3.9 % (20.0-44.0); MEAN CORPUSCULAR HGB CONC 33 g/dl (31.0-36.0); MEAN CORPUSCULAR VOLUME 88 fL (80-96); MONOCYTES # (AUTO) 0.5 /CMM (0.1-1.30); MONOCYTES % (AUTO) 3.2 % (2.0-12.0); NEUTROPHILS # (AUTO) 14.8 /CMM (1.8-8.9); NEUTROPHILS % (AUTO) 92.6 % (43.0-81.0)
[2018-03-29 04:59] LABS: PLATELET COUNT (AUTO) 13 /CMM (150-450)
[2018-03-29 05:02] LABS: CALCIUM, SERUM 7.5 mg/dL (8.5-10.1); CREATININE 5.1 mg/dL (0.6-1.3); LYMPHOCYTES % (MANUAL) 4 % (16-48); MONOCYTES % (MANUAL) 4 % (0-11.0); NEUTROPHILS % (MANUAL) 92 (42-76); POTASSIUM 4.8 mmol/L (3.5-5.1)
--- NOTE | 2018-03-29 05:08 | NUR ---
RT PT RECEIVED ORALLY INTUBATED W/ 7.5 ETT@ 23 CM @ THE LIP ON [facility] VENT WITH NOTED SETTINGS. ETT PATENT AND SECURE. MANAGER ONCOLOGY DONE. VENT TO RED OUTLET. ALARMS SET AND AUDIBLE. SUCTIONED SMALL AMOUNT OF YELLOW /SANTIAGO SECRETIONS. NO SOB OR DISTRESS NOTED ON SHIFT. Addendum: 03/29/18 at 0511 by SAMMY SOLOMON RT Amended: Links added.
[2018-03-29] MEDS: PROPOFOL 100 ML IV PRN (05:29)
--- NOTE | 2018-03-29 06:00 | NUR ---
TECHNICIAN ASSISTANT NOTES PLATELET LEVEL = 13. VERONICA BENZ CRYSTAL LAPPER MADE AWARE4, WITH ORDER TO TRANSFUSE 1 UNIT PLATELETS. CHARGE NURSE DOMINIQUE MADE AWARE. WILL TRANSFUSE WHEN READY AND MONITOR CLOSELY
[2018-03-29] MEDS: IV LR 1000 ML 1,000 ML IV PRN (06:22)
--- NOTE | 2018-03-29 06:45 | NUR ---
MERCHANDISE PRESENTATION MANAGER CLOSING NOTES PATIENT REMAINS ORALLY INTUBATED ON MECHANICAL VENTILATION, PENDING TRANSFUSION OF 1 UNIT PLATELETS. WILL ENDORSE THE PATIENT TO THE AM SHIFT NURSE FOR CONTINUITY OF CARE
--- NOTE | 2018-03-29 07:45 | NUR ---
INITIAL INSTALLMENT LOAN COLLECTOR NOTE RCVD PT SEDATED WITH DIPRIVAN LOW DOSE, INTUBATED ETT 7.5 23 AT LIP. SR ON MONITOR. ZHANG TO GRAVITY WITH NO URINARY OUTPUT. PT ON DIALYSIS ALREADY. ABDOMINAL DRESSING APPEARS C/D/I. MILVIA BULB COMPRESSED, SANGUINEOUS DRAINAGE OBSERVED. IV SITES C/D/I/PATENT. NO S/O INFILTRATION/PHLEBITIS OBSERVED UPON FLUSHING. WILL CONTINUE TO MONITOR PT FOR SAFETY AND COMFORT. BED IN LOW AND LOCKED POSITION. CALL LIGHT WITHIN REACH.
--- NOTE | 2018-03-29 08:18 | NUR ---
WOUND CARE CONSULT: PT PRESENTS WITH SACRAL DEEP TISSUE INJURY WHICH EXTENDS TO BILATERAL BUTTOCKS WITH SOME BLISTERING. PT ALSO NOTED TO HAVE SURGICAL DRESSING TO ABDOMEN WHICH IS DRY AND INTACT, MILVIA DRAIN NOTED AND DRY ABRASION TO ABDOMEN FROM PREVIOUS TAPE NOTED. SCARRING TO POSTERIOR THIGHS NOTED PRESENT ON ADMISSION. RECOMMENDATIONS MADE FOR SKIN PROTECTION AND WOUND CARE AND DISCUSSED WITH NURSING STAFF. DEFER TO SURGEON FOR SURGICAL SITE. PT NOTED TO HAVE MULTIPLE CO-MORBIDITIES INCLUDING SEPTIC SHOCK SECONDARY TO ABDOMINAL WALL ABSCESS (S/P LAPAROSCOPIC EXPLORATION AND DRAINAGE), ANEMIA, COAGULOPATHY, SEPSIS SYNDROME AND ACUTE RENAL FAILURE. PT INTUBATED AT THIS TIME. DUE TO MULTIPLE CO-MORBIDITIES, FURTHER SKIN BREAKDOWN MAY BE UNAVOIDABLE. CURRENT CHELSEA SCORE IS 8. [facility]. WILL SEE PRN. BAZAN IN AGREEMENT WITH PLAN OF CARE.
--- NOTE | 2018-03-29 08:54 | NUR ---
LINE ASSEMBLY UTILITY WORKER NOTE PT'S FAMILY AT BEDSIDE UPDATED ON PT'S CONDITION. QUESTIONS ANSWERED AND ENCOURAGED.
[2018-03-29] MEDS: HYDROCORTISONE SOD SUCCINATE 100 MG/2 ML VIAL IV SCH ×3 (08:57→17:03)
[2018-03-29] MEDS: DAKINS QUARTER STRENGTH (0.125%) 480 ML BOTTLE TOP SCH (08:58)
[2018-03-29 09:21] LABS: ABG BASE EXCESS -2.2 mmol/L; ABG OXYGEN SATURATION 97.5 % (92.0-98.5); ABG PCO2 26.7 mmHg (35.0-45.0); ABG PH 7.495 (7.350-7.450); ABG PO2 117.7 mmHg (75.0-100.0); AaDO2 136.8 mmHg; COHb 0.3 % (0.5-1.5); MetHb 0.2 % (0.0-1.5); PEEP,BG 0 cm H2O; SITE, ABG Right Radial; VT, ABG 600 mL
--- NOTE | 2018-03-29 10:19 | NUR ---
MANUFACTURING AUTOMATION ENGINEER NOTE BLOOD BANK CALLED REQUESTING UPDATED ON PLATELETS, THEY DON'T HAVE PLATELETS YET THEY WAITING TO RECEIVE THEM. THEY'LL CALL ONCE RECEIVED.
[2018-03-29] MEDS: PANTOPRAZOLE 40 MG VIAL IV SCH (11:14)
[2018-03-29] MEDS: IV D5/ 0.9% NACL 1,000 ML IV PRN ×2 (12:50→22:59)
--- NOTE | 2018-03-29 16:54 | NUR ---
CLINICAL AUDITOR NOTE RT CALLED INTO ROOM PT BITING TUBE, NOT GETTING VOLUMES. MOUTH GIANNI IN PLACE NOW.
[2018-03-29] MEDS: CEFTRIAXONE 2 G in IV D5W 100 ML IV SCH (17:03)
--- NOTE | 2018-03-29 18:34 | NUR ---
RT END OF THE SHIFT REPORT; PT. 52 Y OLD REC. ORALLY INTUBATED ETT #7.5@23 CM LIP LINE WITH NOTED SETTINGS, B/S RALES BILATERALLY, EQUAL CHEST RISE NOTED, SUX'D FOR MOD. AMT SECRETIONS, HME CHANGED BITE BLOCK PLACED POST PT. OFF SEDATION DUE TO BITING. DILIA KRAUSE AT THE BEDSIDE. PT. STABLE REPORT WILL PASS TO PM SHIFT. VENT PLUGGED INTO RED OUT LET. Addendum: 03/29/18 at 1838 by CARMEN WARD RT Amended: Links added.
--- NOTE | 2018-03-29 18:53 | NUR ---
FLOAT OPERATOR NOTE PT REMAINS OFF SEDATION, WITHDRAWS FROM PAINFUL STIMULI/TOUCH SR ON MONITOR WITH PACs, INTUBATED TOLERATING ORDERED VENT SETTINGS WELL. ZHANG DISCONTINUED ORDERED PER DR. JOSHI. WOUND CARE DONE ORDERED. IV SITES C/D/I/PATENT. NO S/O INFILTRATION/PHLEBITIS OBSERVED UPON FLUSHING. IVF INFUSING ORDERED. PT REMAINS ON INSULIN GTT. PT'S CARE WILL BE ENDORSED TO OPTICAL DESIGNER RN FOR CONTINUITY OF CARE. BED IN LOW AND LOCKED POSITION. DR. JOSHI LORRAINE CAME TO ASSESS PT LATE THIS AFTERNOON AND RECOMMENDED TO START PT ON TPN SINCE BOWEL SOUNDS REMAIN HYPOACTIVE AND NO BOWEL MOVEMENT HAS OCCURRED. DR. MEDINA CONTACTED AND INFORMED OF ABOVE. HE ACKNOWLEDGED AND WILL ORDER TPN FOR PT. EEG DONE ORDERED.
[2018-03-29] MEDS: INSULIN REGULAR, HUMAN 100 UNIT in IV NS 0.9% 99 ML IV PRN ×2 (20:06)
--- NOTE | 2018-03-29 20:25 | NUR ---
RECEIVED PT ORALLY INTUBATED 7.5 ETT SECURED AT 23CM AT THE LIP. PT TOLERATING VENT SETTINGS. SX'D FOR MOD AMT OF TINGED SECRETIONS. VENT ALARMS SET AND AUDIBLE. ETT CUFF COMPUTER FORENSICS INVESTIGATOR, BITE BLOCK IN PLACE. AMBU BAG AT BEDSIDE. WILL CONTINUE TO MONITOR. Addendum: 03/29/18 at 2026 by HAVEN RIVERA RT Amended: Links added.
[2018-03-30] VITALS (45 sets, daily range): BP systolic 84–150; BP diastolic 71–138
--- NOTE | 2018-03-30 00:13 | NUR ---
FLAT GRINDER OPERATOR NOTES SPOKE TO MAHOGANY FROM BLOOD BANK REGARDING 1 UNIT OF PLATELETS ORDERED SINCE 0600 03/29/18. PER MAHOGANY, UNIT IS STILL NOT READY. REQUESTED FOR UNIT TO BE ORDERED STAT, UNIT WILL BE TRANSFUSED SOON IT IS READY/AVAILABLE. WILL CONTINUE TO CLOSELY MONITOR THE PATIENT
[2018-03-30] MEDS: BLOOD SUGAR DIAGNOSTIC 1 EACH STRIP IN SCH ×15 (01:02→21:05)
--- NOTE | 2018-03-30 04:10 | NUR ---
RADIAL DRILL PRESS OPERATOR NOTES 0330: RECEIVED CALL FROM NICK FROM BLOOD BANK, 1 UNIT PLATELETS NOW AVAILABLE 0400: TRANSFUSION COMPLETED, PATIENT TOLERATED WELL, NO S/S OF ADVERSE BLOOD TRANSFUSION REACTION NOTED. WILL CONTINUE TO CLOSELY MONITOR
[2018-03-30 04:29] LABS: BASOPHILS # (AUTO) 0.1 /CMM (0.0-0.2); BASOPHILS % (AUTO) 0.4 % (0.0-2.0); HEMATOCRIT 27 % (39-51); HEMOGLOBIN 9.2 g/dL (13.5-17.5); LYMPHOCYTES # (AUTO) 0.3 /CMM (0.8-4.8); LYMPHOCYTES % (AUTO) 1.7 % (20.0-44.0); MEAN CORPUSCULAR HGB CONC 34 g/dl (31.0-36.0); MEAN CORPUSCULAR VOLUME 88 fL (80-96); MONOCYTES # (AUTO) 0.2 /CMM (0.1-1.30); NEUTROPHILS # (AUTO) 17.1 /CMM (1.8-8.9); NEUTROPHILS % (AUTO) 96.9 % (43.0-81.0); RED BLOOD CELL COUNT(AUTO) 3.08 MIL/uL (4.5-6.0); WHITE BLOOD COUNT (AUTO) 17.7 K/uL (4.3-11.0)
[2018-03-30 04:36] LABS: PLATELET COUNT (AUTO) 19 /CMM (150-450)
[2018-03-30 04:43] LABS: CALCIUM, SERUM 7.7 mg/dL (8.5-10.1); CREATININE 4.8 mg/dL (0.6-1.3); POTASSIUM 4.7 mmol/L (3.5-5.1)
[2018-03-30 05:01] LABS: MONOCYTES % (MANUAL) 2 % (0-11.0)
[2018-03-30 05:02] LABS: LYMPHOCYTES % (MANUAL) 3 % (16-48); NEUTROPHILS % (MANUAL) 95 (42-76)
[2018-03-30 05:11] LABS: D-DIMER 14.2 mg/L(FEU (0.17-0.50)
--- NOTE | 2018-03-30 05:30 | NUR ---
FAMILY DAY CARE WORKER NOTES RECEIVED CALL FROM LAB REGARDING PLT 19. HOWEVER, AFTER BLOOD WAS DRAWN, 1 UNIT OF PLT WAS TRANSFUSED, DELAYED DUE TO ISSUES WITH BLOOD BANK. VERONICA BENZ MADE AWARE, WITH ORDER TO REPEAT CBC AT 0730. READ BACK FOR CLARIFICATION. WILL CARRY OUT NEW ORDERS
--- NOTE | 2018-03-30 06:00 | NUR ---
SVP DIGITAL SALES FOOD & COOKING NOTES INSULIN DRIP MOVED TO ALGORITHM 3 DUE TO PERSISTENT HYPERGLYCEMIA. WILL CONTINUE TO CLOSELY MONITOR.
[2018-03-30 06:08] LABS: *SPE A/G RATIO 0.5 (0.7-1.7); *SPE ALBUMIN 1.5 g/dL (2.9-4.4); *SPE ALPHA-1-GLOBULIN 0.5 g/dL (0.0-0.4); *SPE ALPHA-2-GLOBULIN 1.1 g/dL (0.4-1.0); *SPE BETA GLOBULIN 0.6 g/dL (0.7-1.3); *SPE GLOBULIN, TOTAL 3.3 g/dL (2.2-3.9); *SPE M-SPIKE Not Observed g/dL (Not Observed); *SPEGAMMA GLOBULIN 1.1 g/dL (0.4-1.8)
--- NOTE | 2018-03-30 07:00 | NUR ---
EDUCATIONAL DIRECTOR NOTES INSULIN DRIP MOVED TO ALGORITHM 4 PER PROTOCOL.
--- NOTE | 2018-03-30 07:12 | NUR ---
RN INITIAL NOTES: Rec'd pt on bed, not in any distress, responsive to deep painful stimuli. On MV via ETT 7.09/09, sating at 97%. On telemonitor, SR. Has NIRALI PICC line w/ D5NS x 100 cc/hr, Insulin Drip x 8 u/hr, & CVP line. Has SL on LFA G20 & RFA G18. Has R groin HD cath. Has MILVIA drain on L medial abdomen intact, noted serosanguineous output. NPO at this time d/t abd'l sx done on 03/25. Provided comfort & safety measures. Bed kept low & in locked pos. Call light placed w/in reach. Will cont to monitor & attend pt needs.
[2018-03-30 08:38] LABS: BASOPHILS # (AUTO) 0.1 /CMM (0.0-0.2); BASOPHILS % (AUTO) 0.3 % (0.0-2.0); EOSINOPHILS % (AUTO) 0.1 % (0.0-6.0); HEMATOCRIT 28 % (39-51); HEMOGLOBIN 9.2 g/dL (13.5-17.5); LYMPHOCYTES # (AUTO) 0.3 /CMM (0.8-4.8); LYMPHOCYTES % (AUTO) 1.7 % (20.0-44.0); MEAN CORPUSCULAR HGB CONC 33 g/dl (31.0-36.0); MEAN CORPUSCULAR VOLUME 88 fL (80-96); MONOCYTES # (AUTO) 0.2 /CMM (0.1-1.30); NEUTROPHILS # (AUTO) 19.2 /CMM (1.8-8.9); NEUTROPHILS % (AUTO) 96.9 % (43.0-81.0); PLATELET COUNT (AUTO) 51 /CMM (150-450); RED BLOOD CELL COUNT(AUTO) 3.15 MIL/uL (4.5-6.0); WHITE BLOOD COUNT (AUTO) 19.9 K/uL (4.3-11.0)
--- NOTE | 2018-03-30 08:46 | NUR ---
Pt seen & examined by Dr. Manriquez, may order to start TPN PTD.
[2018-03-30] MEDS: HYDROCORTISONE SOD SUCCINATE 100 MG/2 ML VIAL IV SCH ×3 (08:56→16:58)
[2018-03-30] MEDS: IV D5/ 0.9% NACL 1,000 ML IV PRN (08:56)
[2018-03-30] MEDS: DAKINS QUARTER STRENGTH (0.125%) 480 ML BOTTLE TOP SCH (08:56)
[2018-03-30] MEDS ORDERED: TPN/PPN PER PHARMACY XX PRN (09:00)
--- NOTE | 2018-03-30 09:03 | NUR ---
Pt seen & examined by Dr. Gonzalez.
[2018-03-30 09:07] LABS: ABG BASE EXCESS -5.4 mmol/L; ABG OXYGEN SATURATION 96.9 % (92.0-98.5); ABG PCO2 25.3 mmHg (35.0-45.0); ABG PH 7.454 (7.350-7.450); ABG PO2 108.8 mmHg (75.0-100.0); AaDO2 147.3 mmHg; COHb 0.3 % (0.5-1.5); MetHb 0.6 % (0.0-1.5); PEEP,BG 0 cm H2O; SITE, ABG Right Radial; VENT MODE, BG AC 12 600 40% +0; VT, ABG 600 mL
--- NOTE | 2018-03-30 09:13 | NUR ---
ABG reviewed by . RT changed TV to 500. Will continue to monitor pt. Plan to wean lopez.
--- NOTE | 2018-03-30 09:54 | NUR ---
Dr. Salvador was able to talk to the family at bedside.
--- NOTE | 2018-03-30 10:04 | NUR ---
TV at 500. Pt noted to be tacypneic RR 28, BP 149/106. Dr. Gonzalez made aware w/ orders to make TV 550.
[2018-03-30] MEDS: INSULIN REGULAR, HUMAN 100 UNIT in IV NS 0.9% 99 ML IV PRN ×2 (10:12)
[2018-03-30] MEDS: PANTOPRAZOLE 40 MG VIAL IV SCH (10:16)
--- NOTE | 2018-03-30 10:21 | NUR ---
Family was able to talk to Dr. Manriquez at bedside. ordered neuroconsult. SVETLANA Qureshi made aware.
--- NOTE | 2018-03-30 11:00 | NUR ---
Pt seen & examined by SVETLANA Qureshi for neuro consult. FUNDRAISING SPECIALIST was able to talk w/ the family at bedside. Per FUNDRAISING SPECIALIST case will be discussed w/ Dr. Pepper. Made her aware re: EEG done yesterday per report & will do another CT scan of head today.
--- NOTE | 2018-03-30 12:00 | NUR ---
Pt tolerated the CT Head w/o contrast via ACLS protocol.
--- NOTE | 2018-03-30 12:16 | NUR ---
CN rec'd call from [facility] re: TPN order. Clarification has been made w/ Dr. Manriquez c/o BETHANIE. responded that pharmacist will put the insulin in the TPN. DC the insulin drip & use high dose sliding scale to cover additional BS elevation. This was communicated to the pharmacy c/o CN.
[2018-03-30 12:47] LABS: MAGNESIUM 1.9 mg/dL (1.8-2.4); PHOSPHORUS 5.3 mg/dL (2.5-4.9)
[2018-03-30] MEDS ORDERED: TPN BAG #1 IV PRN ×6 (14:30)
[2018-03-30] MEDS ORDERED: IV D5/ 0.9% NACL 1,000 ML IV PRN (14:30)
[2018-03-30] MEDS ORDERED: FEE PK DOSING 1 MIN EA MC ONE (14:38)
[2018-03-30] MEDS ORDERED: FEE TPN 1 MIN EA MC ONE (14:39)
[2018-03-30] MEDS ORDERED: DEXTROSE 50%-WATER 50 ML DISP.SYRIN IV PRN (15:00)
[2018-03-30] MEDS: LEVOFLOXACIN 250 MG /D5W 50 ML 250 MG in PREMIX 1 EA IV SCH ×2 (15:45→17:35)
[2018-03-30] MEDS: CEFTRIAXONE 2 G in IV D5W 100 ML IV SCH (16:53)
[2018-03-30] MEDS: INSULIN REGULAR, HUMAN 100 UNIT/ML 3 ML VIAL SQ PRN ×2 (16:58→21:11)
--- NOTE | 2018-03-30 17:25 | NUR ---
RT END OF THE SHIFT REPORT; PT. 52 Y OLD REC. ORALLY INTUBATED ETT #7.5@23 CM LIP LINE WITH NOTED SETTINGS, B/S RALES BILATERALLY, EQUAL CHEST RISE NOTED, SUX'D FOR MOD. AMT SECRETIONS, HME CHANGED BITE BLOCK IN PLACED. AMBU BAG REMIAN AT THE BEDSIDE. PT. STABLE REPORT WILL PASS TO PM SHIFT. VENT PLUGGED INTO RED OUT LET. CT SCAN DONE RT STAND BY T/O DAY Addendum: 03/30/18 at 1726 by CARMEN WARD RT Amended: Links added.
--- NOTE | 2018-03-30 18:25 | NUR ---
RN CLOSING NOTES: No acute changes noted w/in shift. Pt remains responsive only to deep painful stimuli. Pt tolerated MV via ETT, changes in TV 550 done this AM. On telemonitor, still SR. NIRALI PICC line started w/ TPN x 40cc/hr & CVP line. SL on LFA G20 & RFA G18 kept patent & intact w/ no s/sx of infection/infiltration noted. R groin HD cath kept intact. Pt tolerated HD w/ 1.5L output. MILVIA drain on L medial abdomen kept intact, still noted serosanguineous output w/ 50cc. Insulin Drip & D5NS DC'd after TPN started. Kept well rested. Needs attended. Bed kept low & in locked pos. Call light placed w/in reach. Will endorse to PM RN for MARLEE.
--- NOTE | 2018-03-30 20:00 | NUR ---
ELECTRICIAN MANAGER - NOTES - Pt is responsive only to deep painful stimuli. Pt tolerated MV via ETT, changes in TV 550. On telemonitor, still SR. NIRALI PICC line started w/ TPN x 40cc/hr & CVP line. SL on LFA G20 & RFA G18 kept patent & intact w/ no s/sx of infection/infiltration noted. R groin HD cath kept intact. MILVIA drain on L medial abdomen kept intact, still noted serosanguineous. Kept well rested. Needs attended. Bed kept low & in locked pos. Call light placed w/in reach. Will endorse to PM RN for MARLEE.
--- NOTE | 2018-03-30 20:25 | NUR ---
RECEIVED PT ORALLY INTUBATED 7.5 ETT SECURED AT 23CM AT THE LIP. PT TOLERATING VENT SETTINGS. SX'D FOR MOD AMT OF THICK SANTIAGO SECRETIONS. VENT ALARMS SET AND AUDIBLE. ETT CUFF CURER ACID DRUM, BITE BLOCK IN PLACE. AMBU BAG AT BEDSIDE. WILL CONTINUE TO MONITOR. Addendum: 03/30/18 at 2028 by HAVEN RIVERA RT Amended: Links added.
[2018-03-31] VITALS (44 sets, daily range): BP systolic 108–145; BP diastolic 73–108
[2018-03-31] MEDS: INSULIN REGULAR, HUMAN 100 UNIT/ML 3 ML VIAL SQ PRN ×6 (01:05→21:06)
[2018-03-31] MEDS: BLOOD SUGAR DIAGNOSTIC 1 EACH STRIP IN SCH ×6 (01:07→21:04)
[2018-03-31 04:27] LABS: BASOPHILS % (AUTO) 0.1 % (0.0-2.0); HEMATOCRIT 28 % (39-51); HEMOGLOBIN 9.3 g/dL (13.5-17.5); LYMPHOCYTES # (AUTO) 0.2 /CMM (0.8-4.8); LYMPHOCYTES % (AUTO) 0.8 % (20.0-44.0); MEAN CORPUSCULAR HGB CONC 33 g/dl (31.0-36.0); MEAN CORPUSCULAR VOLUME 89 fL (80-96); MONOCYTES # (AUTO) 0.1 /CMM (0.1-1.30); MONOCYTES % (AUTO) 0.6 % (2.0-12.0); NEUTROPHILS # (AUTO) 23.4 /CMM (1.8-8.9); NEUTROPHILS % (AUTO) 98.5 % (43.0-81.0); WHITE BLOOD COUNT (AUTO) 23.8 K/uL (4.3-11.0)
[2018-03-31 04:37] LABS: PLATELET COUNT (AUTO) 34 /CMM (150-450)
[2018-03-31 04:50] LABS: BAND % (MANUAL) 3 % (0.0-5.0); NEUTROPHILS % (MANUAL) 97 (42-76)
[2018-03-31 05:01] LABS: CALCIUM, SERUM 7.9 mg/dL (8.5-10.1); CREATININE 4.9 mg/dL (0.6-1.3); POTASSIUM 4.6 mmol/L (3.5-5.1)
--- NOTE | 2018-03-31 08:24 | NUR ---
RT PATIENT REC'D ORALLY INTUBATED ON [facility] VENT WITH ORDERED SETTINGS NOLA WELL. VENT ALARMS CHECKED + AUDIBLE. 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 BREATH SOUNDS WHEEZING THROUGHOUT. PATIENT AIRWAY SUCTIONED AND PATENT. SMALL AMT OF PALE SEMITHICK SECRETIONS. PATIENT SEDATED AND COMFORTABLE. AMBU BAG AT HOB Addendum: 03/31/18 at 0827 by SHADE THORNE RT Amended: Links added.
[2018-03-31] MEDS: PANTOPRAZOLE 40 MG VIAL IV SCH (09:26)
[2018-03-31] MEDS: HYDROCORTISONE SOD SUCCINATE 100 MG/2 ML VIAL IV SCH ×2 (09:26→12:04)
[2018-03-31] MEDS: DAKINS QUARTER STRENGTH (0.125%) 480 ML BOTTLE TOP SCH (09:27)
[2018-03-31] MEDS ORDERED: TPN BAG #2 IV PRN ×6 (10:00)
[2018-03-31] MEDS: IV NS 0.9% 1,000 ML IV PRN (10:26)
[2018-03-31 10:49] LABS: ABG BASE EXCESS -2.6 mmol/L; ABG OXYGEN SATURATION 93.4 % (92.0-98.5); ABG PCO2 27.2 mmHg (35.0-45.0); ABG PH 7.483 (7.350-7.450); ABG PO2 68.4 mmHg (75.0-100.0); AaDO2 185.5 mmHg; COHb 0.3 % (0.5-1.5); MetHb 0.7 % (0.0-1.5); O2Hb 92.5 % (94.0-97.0); PEEP,BG 0 cm H2O; SITE, ABG Right Radial; VT, ABG 550 mL
--- NOTE | 2018-03-31 11:25 | NUR ---
RN NOTE 0720: Received patient obtunded. With ETT to vent, no respiratory distress noted at this time. SR 70's on the monitor. With NIRALI PICC intact. On TPN infusing as ordered. With Right abdominal incision site packed as ordered, no bleeding noted. Mid abdomen MILVIA drain draining serosanguineous discharge. 0900: S/E by Dr. Gonzalez, no new order at this time. 0930: S/E by Dr. Manriquez, said he will call pharmacy for insulin adjustment in TPN 2/2 high BS. 1030: S/E by Dr. Kal Amezcua, made aware patient has no UOP. 1045: S/E by Kiera MOTA, aware still unable to do MRI, patient still obtunded. Noted with posturing when suctioned and head turning to left side always. With minimal withdrawal to pain noted. 1120: S/E by Dr. Steve Amezcua, no new order at this time. 1025: No any significant changes noted at this time. Kept clean, warm and dry. Needs attended.
--- NOTE | 2018-03-31 12:20 | NUR ---
PATIENT ON VENT UNABLE TO DO MRI, NURSE IS AWARE OF IT.
--- NOTE | 2018-03-31 17:14 | NUR ---
RN NOTE Father at bedside, aware for the POC. Done with HD, tolerated, VSS.
[2018-03-31] MEDS: CEFTRIAXONE 2 G in IV D5W 100 ML IV SCH (17:24)
--- NOTE | 2018-03-31 19:35 | NUR ---
PT RCVD ORALLY INTUBATED WITH 7.5 ETT@ 23 CM LIP LINE ON THE VENT WITH NOTED SETTINGS. PT IS UNRESPONSIVE , SUCTIONED MODERATE AMOUNT OF YELLOW /SANTIAGO THICK SECRETIONS. VENT PLUGGED INTO RED OUTLET, VENT ALARMS ON AND AUDIBLE, CUFF INFLATED, AMBU BAG AT BEDSIDE. WILL CONTINUE TO MONITOR.
--- NOTE | 2018-03-31 20:00 | NUR ---
Received patient obtunded.SR per monitor.VS stable.On full vent support at prescribed settings well tolerated.No acute respiratory distress noted.NPO.Abdominal incision with dressing C/D/I.MILVIA drain to suction with serosanguineous drainage.TPN and IVF infusing to NIRALI PICC LINE site intact. Turned and repositioned.
[2018-04-01] VITALS (59 sets, daily range): BP systolic 90–149; BP diastolic 56–104
[2018-04-01] MEDS: BLOOD SUGAR DIAGNOSTIC 1 EACH STRIP IN SCH ×6 (01:21→21:28)
[2018-04-01] MEDS: INSULIN REGULAR, HUMAN 100 UNIT/ML 3 ML VIAL SQ PRN ×6 (01:23→21:30)
[2018-04-01] MEDS: IV NS 0.9% 1,000 ML IV PRN ×2 (02:54→19:20)
[2018-04-01] MEDS: IV NS 0.9% 500 ML BAG IV PRN (03:20)
[2018-04-01 05:21] LABS: BASOPHILS % (AUTO) 0.1 % (0.0-2.0); HEMATOCRIT 28 % (39-51); HEMOGLOBIN 9.2 g/dL (13.5-17.5); LYMPHOCYTES # (AUTO) 0.4 /CMM (0.8-4.8); LYMPHOCYTES % (AUTO) 1.8 % (20.0-44.0); MEAN CORPUSCULAR HGB CONC 33 g/dl (31.0-36.0); MEAN CORPUSCULAR VOLUME 89 fL (80-96); MONOCYTES # (AUTO) 0.4 /CMM (0.1-1.30); MONOCYTES % (AUTO) 2.1 % (2.0-12.0); NEUTROPHILS # (AUTO) 19.6 /CMM (1.8-8.9); RED BLOOD CELL COUNT(AUTO) 3.15 MIL/uL (4.5-6.0); WHITE BLOOD COUNT (AUTO) 20.5 K/uL (4.3-11.0)
[2018-04-01 05:26] LABS: CALCIUM, SERUM 7.5 mg/dL (8.5-10.1); PHOSPHORUS 6.2 mg/dL (2.5-4.9); POTASSIUM 4.8 mmol/L (3.5-5.1)
[2018-04-01 05:27] LABS: PLATELET COUNT (AUTO) 46 /CMM (150-450)
--- NOTE | 2018-04-01 05:40 | NUR ---
Patient platelets ct 46 called to Sonya MOTA no new orders received.
[2018-04-01 06:15] LABS: BAND % (MANUAL) 2 % (0.0-5.0); LYMPHOCYTES % (MANUAL) 3 % (16-48); METAMYELOCYTES % 1 % (0-0); NEUTROPHILS % (MANUAL) 92 (42-76); PROMYELOCYTES % 1 % (0-0); REACTIVE LYMPHOCYTES 1 % (0-0)
[2018-04-01] MEDS ORDERED: TPN BAG #3 IV PRN ×6 (07:00)
--- NOTE | 2018-04-01 07:20 | NUR ---
Patient resting in no acute distress.VS remains stable.All iv's infusing well.No significant change noted during the shift.Report given to am shift RN for MARLEE.
--- NOTE | 2018-04-01 07:49 | NUR ---
INITIAL TACK CLEANER NOTE RCVD PT UNABLE TO OPEN EYES TO PAINFUL STIMULI OR WITHDRAW. SR ON MONITOR, TOLERATING ORDERED VENT SETTINGS WELL. ANURIC. MILVIA DRAINING SEROSANGUINEOUS FLUID. ABDOMINAL DRESSING APPEARS C/D/I/PATENT. IV SITES C/D/I/PATENT NO S/O INFILTRATION/PHLEBITIS OBSERVED, IVF INFUSING ORDERED. PT REMAINS NPO ON TPN. WILL CONTINUE TO MONITOR PT FOR SAFETY AND COMFORT. BED IN LOW AND LOCKED POSITION. HOB ELEVATED AT 30 DEGREES.
[2018-04-01 08:02] LABS: ABG BASE EXCESS -3.7 mmol/L; ABG OXYGEN SATURATION 91.3 % (92.0-98.5); ABG PCO2 26.6 mmHg (35.0-45.0); ABG PO2 61.5 mmHg (75.0-100.0); AaDO2 193.1 mmHg; COHb 0.3 % (0.5-1.5); MetHb 0.7 % (0.0-1.5); O2Hb 90.4 % (94.0-97.0); PEEP,BG 0 cm H2O; SITE, ABG Right Radial; VT, ABG 550 mL
[2018-04-01] MEDS: HYDROCORTISONE SOD SUCCINATE 100 MG/2 ML VIAL IV SCH (09:02)
[2018-04-01] MEDS: DAKINS QUARTER STRENGTH (0.125%) 480 ML BOTTLE TOP SCH (09:06)
--- NOTE | 2018-04-01 09:47 | NUR ---
ROGUER NOTE DR. MEDINA IN UNIT UPDATED REGARDING PT'S CONDITION. HE RECOMMENDED TO TRANSITION PT FROM TPN TO TUBE FEEDING. DIETARY CONSULTED FOR RECOMMENDATIONS REGARDING TUBE FEEDING RATE. WILL F/U.
[2018-04-01] MEDS: PANTOPRAZOLE 40 MG VIAL IV SCH (09:54)
[2018-04-01] MEDS: HYDROMORPHONE 1 MG/1 ML DISP.SYRIN IV PRN (10:10)
--- NOTE | 2018-04-01 13:15 | NUR ---
UNIVERSITY ARCHIVIST NOTE SPOKE WITH RADHA WATKINS WHO RECOMMENDED TO START PT ON NEPRO AT 30 ML/HR AND ADVANCE 10 ML EVERY 12 HRS TO GOAL OF 50 ML/HR. SHE RECOMMENDED TO TITRATE TPN TO 20 ML.HR ONCE TUBE FEEDINGS ARE STARTED. ORDERS ENTERED. WILL CONTINUE TO MONITOR PT.
[2018-04-01] MEDS ORDERED: NEPRO 1,000 ML BOTTLE GT PRN (13:30)
[2018-04-01] MEDS: ALBUMIN 25% 25 GM in PREMIX 1 EA IV PRN (14:33)
[2018-04-01] MEDS: NEPRO 1,000 ML BOTTLE GT PRN (15:32)
[2018-04-01] MEDS: LEVOFLOXACIN 250 MG /D5W 50 ML 250 MG in PREMIX 1 EA IV SCH (16:50)
[2018-04-01] MEDS: CEFTRIAXONE 2 G in IV D5W 100 ML IV SCH (17:57)
--- NOTE | 2018-04-01 19:22 | NUR ---
PAYLOADER MACHINE OPERATOR NOTE PT REMAINS OFF PRESSORS, SEDATION. UNABLE TO OPEN EYES OR FOLLOW COMMANDS. SR ON MONITOR. TOLERATING ORDERED VENT SETTINGS WELL. IV SITES C/D/I/PATENT, NO S/O INFILTRATION/PHLEBITIS OBSERVED UPON FLUSHING. PT'S CARE ENDORSED TO FAMILY MEDICINE RESIDENT RN FOR CONTINUITY OF CARE. BED IN LOW AND LOCKED POSITION. HOB ELEVATED.
--- NOTE | 2018-04-01 19:45 | NUR ---
PT RCVD ORALLY INTUBATED WITH 7.5 ETT@ 23 CM LIP LINE ON THE VENT WITH NOTED SETTINGS. PT IS UNRESPONSIVE , RESPONDS TO STIMULI WHEN SUCTIONING .SUCTIONED MODERATE AMOUNT OF YELLOW /SANTIAGO THICK SECRETIONS. VENT PLUGGED INTO RED OUTLET, VENT ALARMS ON AND AUDIBLE, CUFF INFLATED, AMBU BAG AT BEDSIDE. WILL CONTINUE TO MONITOR.
[2018-04-02] VITALS (60 sets, daily range): BP systolic 92–150; BP diastolic 59–104
[2018-04-02] MEDS: BLOOD SUGAR DIAGNOSTIC 1 EACH STRIP IN SCH ×11 (01:31→23:08)
[2018-04-02] MEDS: INSULIN REGULAR, HUMAN 100 UNIT/ML 3 ML VIAL SQ PRN ×5 (01:33→16:25)
[2018-04-02 04:38] LABS: BASOPHILS % (AUTO) 0.2 % (0.0-2.0); EOSINOPHILS % (AUTO) 0.1 % (0.0-6.0); HEMATOCRIT 25 % (39-51); HEMOGLOBIN 8.4 g/dL (13.5-17.5); LYMPHOCYTES # (AUTO) 0.5 /CMM (0.8-4.8); LYMPHOCYTES % (AUTO) 2.3 % (20.0-44.0); MEAN CORPUSCULAR HGB CONC 33 g/dl (31.0-36.0); MEAN CORPUSCULAR VOLUME 88 fL (80-96); MONOCYTES # (AUTO) 0.4 /CMM (0.1-1.30); MONOCYTES % (AUTO) 1.7 % (2.0-12.0); NEUTROPHILS # (AUTO) 19.7 /CMM (1.8-8.9); NEUTROPHILS % (AUTO) 95.7 % (43.0-81.0); RED BLOOD CELL COUNT(AUTO) 2.85 MIL/uL (4.5-6.0); WHITE BLOOD COUNT (AUTO) 20.5 K/uL (4.3-11.0)
[2018-04-02 05:13] LABS: CALCIUM, SERUM 7.5 mg/dL (8.5-10.1); CREATININE 4.6 mg/dL (0.6-1.3); PHOSPHORUS 5.8 mg/dL (2.5-4.9); POTASSIUM 4.8 mmol/L (3.5-5.1)
[2018-04-02 05:23] LABS: PLATELET COUNT (AUTO) 42 /CMM (150-450)
[2018-04-02 05:24] LABS: LYMPHOCYTES % (MANUAL) 3 % (16-48); MONOCYTES % (MANUAL) 1 % (0-11.0); NEUTROPHILS % (MANUAL) 96 (42-76)
--- NOTE | 2018-04-02 05:24 | NUR ---
ASSISTANT CHIEF TRAIN DISPATCHER: RELAYED PLATELET RESULT TO RAMIRO POZO.
--- NOTE | 2018-04-02 06:30 | NUR ---
NOTIFIED IVET MOTA CRITICAL VALUE OF PLATELETS 42 AND RECEIVED NO NEW ORDERS. READBACK ORDERS PERFORMED.
--- NOTE | 2018-04-02 07:27 | NUR ---
PT REMAINS IN NO ACUTE DISTRESS IN BED. PT DID NOT HAVE ANY SIGNIFICANT CHANGE IN CONDITION DURING SHIFT. PT TOLERATED VENT SETTING WELL. ALL NEEDS MET, ALL ORDERS CARRIED OUT. WILL ENDORSE CARE TO AM RN FOR CONTINUITY OF CARE.
--- NOTE | 2018-04-02 07:56 | NUR ---
INITIAL LABOR CONTRACT ANALYST NOTE RCVD PT INTUBATED, UNABLE TO OPEN EYES OR WITHDRAW FROM PAINFUL STIMULI, ABSENT CORNEAL COUGH AND WEAK GAG REFLEX, SR ON MONITOR, UNDERGOING DIALYSIS AT THIS TIME. VITAL SIGNS REMAIN STABLE. TOLERATING ORDERED VENT SETTINGS. OG-TUBE PLACEMENT VERIFIED BY AUSCULTATION AND RETURN OF GASTRIC CONTENTS. NO RESIDUAL OBTAINED AT THIS TIME. TUBE FEEDING INCREASED TO 40 ML/HR. ABDOMINAL WOUND DRESSING APPEARS C/D/I. MILVIA DRAINING SEROUS FLUID. IV SITES C/D/I/PATENT. NO S/O INFILTRATION/PHLEBITIS OBSERVED IVF INFUSING ORDERED. WILL CONTINUE TO MONITOR PT FOR SAFETY AND COMFORT. BED IN LOW AND LOCKED POSITION. HOB ELEVATED.
[2018-04-02 08:35] LABS: D-DIMER 24.6 mg/L(FEU (0.17-0.50)
[2018-04-02] MEDS: DAKINS QUARTER STRENGTH (0.125%) 480 ML BOTTLE TOP SCH (08:49)
[2018-04-02] MEDS: HYDROCORTISONE SOD SUCCINATE 100 MG/2 ML VIAL IV SCH (08:49)
[2018-04-02] MEDS: PANTOPRAZOLE 40 MG VIAL IV SCH (09:43)
--- NOTE | 2018-04-02 10:25 | NUR ---
ELEVATOR CONSTRUCTOR HELPER NOTE SPOKE WITH DIETITIAN REGARDING PT'S TRANSITION FROM TPN TO TUBE FEEDING. SHE WAS INFORMED THAT TUBE FEED RATE WAS INCREASED TO 40 ML/HR THIS AM, SO FAR NO RESIDUALS AND TPN CONTINUES TO RUN AT 20 ML/HR. DURING MANAGER CARGO PT HAD RESIDUAL OF 200 ML AND TUBE FEED WAS STOPPED AT 2000 AND RESTARTED LATER AT NIGHT. DIETITIAN RECOMMENDED TO DISCONTINUE TPN AT 1230 TODAY AND GET PT TO GOAL AT 2000 TONIGHT. WILL CONTINUE TO MONITOR. CARMEN SYSTEMS ADMINISTRATION ANALYST FOR DR. SCHUMACHER CAME TO ASSESS PT RECOMMENDED MRI BRAIN, SHE WAS INFORMED THAT PT WON'T BE ABLE TO BE MONITORED WHILE GETTING MRI DONE SINCE EQUIPMENT IS NOT COMPATIBLE WITH MRI MACHINE. RT WAS INFORMED AND CARMEN AGREED TO HAVE DR. PERKINS CLEAR PT PRIOR TO TAKING HIM TO MRI DUE TO CURRENT CIRCUMSTANCES. WILL F/U.
[2018-04-02] MEDS: IV NS 0.9% 1,000 ML IV PRN (11:38)
--- NOTE | 2018-04-02 12:58 | NUR ---
HEAD REFRIGERATION ENGINEER NOTE TPN STOPPED RECOMMENDED BY DIETITIAN, PT TOLERATING TUBE FEEDING WELL. WILL CONTINUE TO MONITOR BG LEVEL.
--- NOTE | 2018-04-02 13:34 | NUR ---
TAPROOM ATTENDANT NOTE SPOKE WITH SVETLANA MORALES FOR DR. SCHUMACHER REGARDING PT'S CONDITION. SHE RECOMMENDED MRI BRAIN. SPOKE WITH DR. PERKINS WHO AGREED THAT BENEFITS OUTWEIGH THE RISKS OF TAKING PT TO MRI DESPITE NOT HAVING EQUIPMENT COMPATIBLE WITH MRI TO MONITOR PT'S VITAL SIGNS. DONNELL, RT INFORMED. DONNELL WENT TO ASSESS EQUIPMENT PRIOR TO TRANSPORTING PT TO SEE IF PHYSICALLY FEASIBLE TO MANUALLY BAG PT WHILE IN MRI MACHINE. UNFORTUNATELY, PT WON'T BE ABLE TO BE MANUALLY BAGGED WHILE MRI IN PROCESS SINCE HOSPITAL DOES NOT HAVE THE PROPER EQUIPMENT TO ACCOMPLISH THIS. SVETLANA MORALES AND DR. PERKINS INFORMED OF ABOVE. PT'S DAD, TORO WAS ALSO UPDATED ABOUT THIS.
[2018-04-02] MEDS: CEFTRIAXONE 2 G in IV D5W 100 ML IV SCH (16:14)
[2018-04-02] MEDS: NEPRO 1,000 ML BOTTLE GT PRN (16:15)
--- NOTE | 2018-04-02 17:26 | NUR ---
RT NOTE GOT CALLED BY ICU NURSE DUE TO VENT REPEATEDLY ALARMING, WHILE ASSESSING THE PATIENT NOTED THE THE ETT CUFF WAS DEPEPLETED, ER DR WAS CALLED TO REPLACE TUBE, ER DR AT BEDSIDE, ASKED FOR A 7.0 SIZE ETT, AND REPLACED THE MALFUNCTIONING ONE, ETT WAS INSERTED WITHOUT INSIDENT, BREATH SOUNDS AUSCULTATED BILATERALLY, CXR PENDING. ETT PLACED AT 21CM @THE LIP. WILL CONTINUE TO MONITOR PT
--- NOTE | 2018-04-02 18:01 | NUR ---
ELEVATOR CONDUCTOR NOTE PT'S VENT STARTED TO ALARM AND CIRCUIT DISCONNECT ALARM KEPT GOING OFF. PT REMAINED CONNECTED TO THE VENT DURING THIS TIME NOT BEING ABLE TO PULL ORDERED VOLUMES. RT CALLED AND TROUBLESHOOTED EQUIPMENT. PT'S BALLOON WAS DEFLATED, RT ATTEMPTED TO INFLATE BALLOON UNSUCCESSFULLY. ER MD WAS CALLED IN TO REPLACE ETT TUBE. PT WAS MANUALLY BAGGED WITH GOOD O2 SATURATION UNTIL ETT WAS REPLACED BY ER MD. PT WAS PARALYZED AND SEDATED FOR PROCEDURE. CHEST X-RAY DONE AND REVIEWED. ETT IN GOOD POSITION. OG-TUBE PLACEMENT WAS VERIFIED BY AUSCULTATION/ASPIRATION OF GASTRIC CONTENTS AND SECOND RNJUAN JOSÉ. TOLERATING TUBE FEEDING WELL.
[2018-04-02] MEDS: INS (REG) DRIP 100 U/100 ML NS IV PRN ×12 (18:13→23:06)
--- NOTE | 2018-04-02 18:47 | NUR ---
SHEET CUTTING OPERATOR NOTE PT'S CONDITION REMAINS UNCHANGED, SR ON MONITOR TOLERATING ORDERED VENT SETTINGS WELL. BM SENT FOR OB PER DR. MEDINA. IV SITES C/D/I/PATENT. NO S/O INFILTRATION/PHLEBITIS OBSERVED UPON FLUSHING, IVF INFUSING ORDERED. LAST ACCUCHECK 260 PER SLIDING SCALE PHARMACIST, JOSE WAS NOTIFIED. DR. MEDINA WAS CONTACTED AND RECOMMENDED TO START PT ON INSULIN DRIP. THIS WAS STARTED AND VERIFIED BY SECOND RN CATRACHO. PT'S CARE WILL ENDORSED TO ART GLASS SETTER RN FOR CONTINUITY OF CARE. BED IN LOW AND LOCKED POSITION. HOB ELEVATED.
--- NOTE | 2018-04-02 19:15 | NUR ---
ICU/RN RECEIVED PT ON VENT VIA ORAL ETT,ON 40% FIO2,SAT.99%.PT UNRESPONSIVE TO VERBAL AND TACTILE STIMULI.CVP CALIBRATED AND ZEROED=26 CM H20.ON TUBE FEEDING,INCREASED TO GOAL OF 50ML/HR,NO RESIDUAL OBTAINED. Addendum: 04/02/18 at 2120 by BISHOP HARRISON RN CVP=[id number]
[2018-04-02 19:50] LABS: OCCULT BLOOD STOOL POSITIVE (NEGATIVE)
[2018-04-02] MEDS ORDERED: ETOMIDATE 2 MG/ML VIAL IV ONE (20:23)
[2018-04-02] MEDS ORDERED: SUCCINYLCHOLINE CHLORIDE 20 MG/ML VIAL IV ONE (20:23)
[2018-04-03] VITALS (73 sets, daily range): BP systolic 84–152; BP diastolic 51–92
[2018-04-03] MEDS: INS (REG) DRIP 100 U/100 ML NS IV PRN ×16 (00:12→23:11)
[2018-04-03] MEDS: BLOOD SUGAR DIAGNOSTIC 1 EACH STRIP IN SCH ×23 (00:13→23:11)
--- NOTE | 2018-04-03 00:20 | NUR ---
RT NOTE PT RCVD ORALLY INTUBATED 7.0 ETT SECURED AT 23CM @ LIP ON MECHANICAL VENT WITH CHARTED SETTINGS. PT TOLERATING VENT SETTINGS WELL. SX'D FOR MOD AMT OF THICK SANTIAGO SECRETIONS. VENT PLUGGED INTO RED OUTLET. VENT ALARMS ARE SET AND AUDIBLE. ETT CUFF CHECKED VIA RAIL EXPRESS CLERK, BITE BLOCK IN PLACE. AMBU BAG AT BEDSIDE. WILL CONTINUE TO MONITOR. Addendum: 04/03/18 at 0023 by GARCIA VENTURA RT Amended: Links added.
--- NOTE | 2018-04-03 03:00 | NUR ---
ICU/RN UNABLE TO DO 0300 BLOOD SUGAR, GLUCOMETER NOT WORKING.C.N.ATTEMPTED TO BORROW FROM OTHER FLOORS,WITH NO LUCK.
[2018-04-03] MEDS: IV NS 0.9% 1,000 ML IV PRN ×2 (03:36→18:13)
[2018-04-03] MEDS: IV NS 0.9% 500 ML BAG IV PRN (03:42)
[2018-04-03 05:14] LABS: BASOPHILS # (AUTO) 0.1 /CMM (0.0-0.2); BASOPHILS % (AUTO) 0.7 % (0.0-2.0); EOSINOPHILS % (AUTO) 0.2 % (0.0-6.0); HEMATOCRIT 26 % (39-51); HEMOGLOBIN 8.8 g/dL (13.5-17.5); LYMPHOCYTES # (AUTO) 0.4 /CMM (0.8-4.8); LYMPHOCYTES % (AUTO) 1.7 % (20.0-44.0); MEAN CORPUSCULAR HGB CONC 33 g/dl (31.0-36.0); MEAN CORPUSCULAR VOLUME 88 fL (80-96); MONOCYTES # (AUTO) 0.7 /CMM (0.1-1.30); MONOCYTES % (AUTO) 3.3 % (2.0-12.0); NEUTROPHILS # (AUTO) 20.9 /CMM (1.8-8.9); NEUTROPHILS % (AUTO) 94.1 % (43.0-81.0); RED BLOOD CELL COUNT(AUTO) 2.99 MIL/uL (4.5-6.0); WHITE BLOOD COUNT (AUTO) 22.2 K/uL (4.3-11.0)
[2018-04-03 05:28] LABS: PLATELET COUNT (AUTO) 31 /CMM (150-450)
[2018-04-03 05:31] LABS: CALCIUM, SERUM 7.3 mg/dL (8.5-10.1); CREATININE 4.6 mg/dL (0.6-1.3); PHOSPHORUS 6.8 mg/dL (2.5-4.9); POTASSIUM 4.4 mmol/L (3.5-5.1)
--- NOTE | 2018-04-03 06:00 | NUR ---
ICU/RN REMAINS ON HOURLY ACCU CHECK NOW AT 1.5 UNITS /HR.VITAL SIGNS STABLE.CONDITION UNCHANGED.SUCTIONED VIA ETT FOR SCANT AMT PALE PINK.TINGED SECRETIONS.ANURIC.
[2018-04-03 06:27] LABS: BAND % (MANUAL) 11 % (0.0-5.0); EOSINOPHILS % (MANUAL) 1 % (0-4); MONOCYTES % (MANUAL) 1 % (0-11.0); NEUTROPHILS % (MANUAL) 87 (42-76)
--- NOTE | 2018-04-03 07:30 | NUR ---
RN NOTES [facility] BREATHING NORMAL, EVEN AND NORMAL. NO SOB NOTED. NO ACUTE DISTRESS NOTED. TELE MONITOR REVEALS SR, HR=85. AFEBRILE. NIRALI PICC LINE IS PATENT AND INTACT, RUNNING IVF PER ORDER. ON INSULIN DRIP @ 0.5UNITS/HR. HD CATH IS INTACT, RUNNING HD. DIALYSIS NURSE AT BEDSIDE. ON GT FEED NEPRO @50CC/HR. TOLERATED WELL. NO RESIDUAL NOTED. KEPT CLEAN, DRY AND COMFORTABLE. ALL NEEDS ATTENDED. SAFETY MEASURE OBSERVED. CALL LIGHT WITH IN REACH. WILL CONT TO MONITOR.
[2018-04-03] MEDS: DAKINS QUARTER STRENGTH (0.125%) 480 ML BOTTLE TOP SCH (08:40)
--- NOTE | 2018-04-03 09:10 | NUR ---
RN NOTES PATIENT ENDORSED TO ABIMBOLA RUBIO FOR CONTINUITY OF CARE.
[2018-04-03 10:53] LABS: ABG BASE EXCESS 0.7 mmol/L; ABG OXYGEN SATURATION 95.1 % (92.0-98.5); ABG PCO2 28.3 mmHg (35.0-45.0); ABG PH 7.527 (7.350-7.450); ABG PO2 78.5 mmHg (75.0-100.0); AaDO2 174.2 mmHg; COHb 0.5 % (0.5-1.5); MetHb 0.8 % (0.0-1.5); O2Hb 93.9 % (94.0-97.0); SITE, ABG Left Radial
[2018-04-03] MEDS: PANTOPRAZOLE 40 MG VIAL IV SCH (12:16)
--- NOTE | 2018-04-03 12:32 | NUR ---
PER JABARI ALVAREZ RN OK TO USE LEFT UPPER ARM PICCLINE NO NEED FOR CHEST XRAY
--- NOTE | 2018-04-03 12:33 | NUR ---
PREVIOUS NOTE,ERROR
[2018-04-03] MEDS: NEPRO 1,000 ML BOTTLE GT PRN (13:46)
[2018-04-03] MEDS: LEVOFLOXACIN 250 MG /D5W 50 ML 250 MG in PREMIX 1 EA IV SCH (16:03)
[2018-04-03] MEDS: CEFTRIAXONE 2 G in IV D5W 100 ML IV SCH (17:15)
--- NOTE | 2018-04-03 19:10 | NUR ---
ICU/RN RECEIVED PT ON VENT VIA ORAL ETT W/ SAT OF 97%.REMAINS ON INSULIN DRIP AT 5UNITS PER HOUR.ON SLIDING SCALE Q1HR.CVP=[id number].
--- NOTE | 2018-04-03 20:27 | NUR ---
RECEIVED PT INTUBATED 7.0 ETT SECURED AT 23CM AT THE LIP. PT TOLERATING VENT SETTINGS. SX'D FOR MOD AMT OF THICK FROTHY TINGED SECRETIONS. VENT ALARMS SET AND AUDIBLE. AMBU BAG AT BEDSIDE. VENT PLUGGED INTO RED OUTLET. WILL CONTINUE TO MONITOR. Addendum: 04/03/18 at 2028 by HAVEN RIVERA RT Amended: Links added.
[2018-04-04] VITALS (55 sets, daily range): BP systolic 111–169; BP diastolic 64–98
[2018-04-04] MEDS: BLOOD SUGAR DIAGNOSTIC 1 EACH STRIP IN SCH ×24 (00:05→23:24)
--- NOTE | 2018-04-04 01:00 | NUR ---
ICU/RN TOLERATING TUBE FEEDING WELL.NO RESIDUAL OBTAINED.MONITOR SHOWS SINUS TACH.ON QI HR ACCU CHECK W/ COVERAGE.
--- NOTE | 2018-04-04 04:20 | NUR ---
ICU/RN COMPLETE BED BATH DONE.SUCTIONED FOR SCANT BROWNISH SECRETIONS FROM ETT.RT SIDE ABDOMINAL DRESSING CHANGED AND REINFORCED.J-DRAIN INTACT W/ SEROUS SANGUINOUS DRAINAGE.CVP READING DC'Ana Cristina,C.N. ED MADE AWARE.
[2018-04-04 04:47] LABS: BASOPHILS % (AUTO) 0.1 % (0.0-2.0); CALCIUM, SERUM 7.1 mg/dL (8.5-10.1); CREATININE 5.1 mg/dL (0.6-1.3); EOSINOPHILS % (AUTO) 0.1 % (0.0-6.0); HEMATOCRIT 23 % (39-51); HEMOGLOBIN 7.7 g/dL (13.5-17.5); LYMPHOCYTES # (AUTO) 0.4 /CMM (0.8-4.8); LYMPHOCYTES % (AUTO) 1.8 % (20.0-44.0); MAGNESIUM 1.9 mg/dL (1.8-2.4); MEAN CORPUSCULAR HGB CONC 33 g/dl (31.0-36.0); MEAN CORPUSCULAR VOLUME 87 fL (80-96); MONOCYTES # (AUTO) 0.5 /CMM (0.1-1.30); MONOCYTES % (AUTO) 2.7 % (2.0-12.0); NEUTROPHILS # (AUTO) 19.4 /CMM (1.8-8.9); NEUTROPHILS % (AUTO) 95.3 % (43.0-81.0); PHOSPHORUS 5.7 mg/dL (2.5-4.9); POTASSIUM 4.4 mmol/L (3.5-5.1); RED BLOOD CELL COUNT(AUTO) 2.68 MIL/uL (4.5-6.0); WHITE BLOOD COUNT (AUTO) 20.4 K/uL (4.3-11.0)
[2018-04-04 04:54] LABS: PLATELET COUNT (AUTO) 32 /CMM (150-450)
[2018-04-04 05:24] LABS: LYMPHOCYTES % (MANUAL) 4 % (16-48); MONOCYTES % (MANUAL) 3 % (0-11.0); NEUTROPHILS % (MANUAL) 93 (42-76)
--- NOTE | 2018-04-04 06:02 | NUR ---
ICU/RN EMPTIED 30 ML FR J-P SEROUS SANGUINOUS.VSS.MONITOR STACH-NSR.REMAINS ANURIC.
--- NOTE | 2018-04-04 07:10 | NUR ---
ICU/RN REPORT AND CARE OF PT GIVEN TO MELINA RUBIO.
--- NOTE | 2018-04-04 07:49 | NUR ---
RT PATIENT REC'D ORALLY INTUBATED WITH A 7.0 ETT SECURED AT 23CM AT THE LIP. IT APPEARS THAT BITE BLOCK HAS SLIPPED PASSED THE TEETH AND IS IN MOUTH. RT UNABLE TO RETRIEVE BITE BLOCK BECAUSE PATIENT IS ACTIVELY BITING. I WAS ABLE TO PLACE AN ORAL AIRWAY IN TO PROTECT THE ETT FROM BEING BIT. THERE ARE NO ADVERSE EFFECTS FROM BITE BLOCK SLIPPING BEHIND TEETH AT THIS TIME. CHARGE NURSE SHELLEY NOTIFIED AND AWARE. VENT SETTINGS CHECKED AND ALARMS CHECKED + AUDIBLE. CUFF PRESSURE CHECKED DINING MANAGER. PATIENT SUCTIONED WITH MOD AMOUNT OF SANTIAGO SEMITHICK SECRETIONS. B/S COARSE. PATIENT NOT SEDATED, NOT RESPONSIVE TO VERBAL COMMANDS. AMBU BAG AT [facility]. CONT CURRENT PLAN OF RESP CARE Addendum: 04/04/18 at 0755 by SHADE THORNE RT Amended: Links added.
[2018-04-04] MEDS: INS (REG) DRIP 100 U/100 ML NS IV PRN ×8 (08:14→18:13)
[2018-04-04 08:27] LABS: ABG BASE EXCESS -0.8 mmol/L; ABG PCO2 33.8 mmHg (35.0-45.0); ABG PH 7.442 (7.350-7.450); AaDO2 175.3 mmHg; PEEP,BG 5 cm H2O; SITE, ABG Left Radial; VT, ABG 550 mL
[2018-04-04] MEDS: DAKINS QUARTER STRENGTH (0.125%) 480 ML BOTTLE TOP SCH (08:39)
[2018-04-04] MEDS: NEPRO 1,000 ML BOTTLE GT PRN (10:24)
[2018-04-04] MEDS: IV NS 0.9% 1,000 ML IV PRN (10:24)
[2018-04-04] MEDS: PANTOPRAZOLE 40 MG VIAL IV SCH (11:19)
--- NOTE | 2018-04-04 13:57 | NUR ---
RN NOTES PT S/P A-LINE REMOVAL YESTERDAY, NO CVP READINGS AVAILABLE AT THIS TIME Addendum: 04/04/18 at 1357 by MELINA RAMOS RN Amended: Links added.
[2018-04-04] MEDS: CEFTRIAXONE 2 G in IV D5W 100 ML IV SCH (16:02)
--- NOTE | 2018-04-04 17:54 | NUR ---
Per Dr Manriquez, GI Consult Dr Colunga notified of GI consult Dr Manriquez aware of today's labs
--- NOTE | 2018-04-04 19:30 | NUR ---
SENIOR PRODUCER NOTE PT RECEIVED OBTUNDED. ON MECH VENT WITH SETTINGS WELL TOLERATED AND SATURATING WELL. ETT 7.0 AND 23 @ THE LIP. BREATHING UNLABORED. HOB ELEVATED AND ON ASPIRATION PRECAUTIONS. TELE-SR. ORAL GASTRIC TUBE IN PLACE WITH FEEDING WELL TOLERATED AND NO RESIDUALS NOTED. IV NIRALI PICC CLEAN WITH INSULIN DRIP AND FLUIDS INFUSING. RIGHT FEMORAL PERMACATH IN PLACE AND CLEAN. MILVIA DRAIN IN PLACE AND NOTED WITH SCANT SANGUINOUS DRAINAGE. WILL CONTINUE TO MONITOR.
--- NOTE | 2018-04-04 20:07 | NUR ---
RECEIVED PT INTUBATED 7.0 ETT SECURED AT 23CM AT THE LIP. PT TOLERATING VENT SETTINGS. SX'D FOR MOD AMT OF THICK SANTIAGO SECRETIONS. VENT ALARMS SET AND AUDIBLE. AMBU BAG AT BEDSIDE. ORAL AIRWAY IN PLACE, VENT PLUGGED INTO RED OUTLET. WILL CONTINUE TO MONITOR. Addendum: 04/04/18 at 2007 by HAVEN RIVERA RT Amended: Links added.
[2018-04-04] MEDS: HYDROMORPHONE 1 MG/1 ML DISP.SYRIN IV PRN (21:44)
--- NOTE | 2018-04-04 23:15 | NUR ---
ETT BITE BLOCK REMOVED FROM THE MOUTH. O.P.A STILL IN PLACE. RN AWARE.
[2018-04-05] VITALS (41 sets, daily range): BP systolic 94–153; BP diastolic 65–89
[2018-04-05] MEDS: BLOOD SUGAR DIAGNOSTIC 1 EACH STRIP IN SCH ×25 (00:31→23:55)
[2018-04-05 04:42] LABS: BASOPHILS # (AUTO) 0.1 /CMM (0.0-0.2); BASOPHILS % (AUTO) 0.6 % (0.0-2.0); EOSINOPHILS % (AUTO) 0.5 % (0.0-6.0); HEMATOCRIT 23 % (39-51); HEMOGLOBIN 7.5 g/dL (13.5-17.5); LYMPHOCYTES # (AUTO) 0.4 /CMM (0.8-4.8); LYMPHOCYTES % (AUTO) 2.1 % (20.0-44.0); MEAN CORPUSCULAR HGB CONC 33 g/dl (31.0-36.0); MEAN CORPUSCULAR VOLUME 88 fL (80-96); MONOCYTES # (AUTO) 0.6 /CMM (0.1-1.30); MONOCYTES % (AUTO) 2.6 % (2.0-12.0); NEUTROPHILS % (AUTO) 94.2 % (43.0-81.0); RED BLOOD CELL COUNT(AUTO) 2.62 MIL/uL (4.5-6.0); WHITE BLOOD COUNT (AUTO) 21.3 K/uL (4.3-11.0)
[2018-04-05 04:48] LABS: PLATELET COUNT (AUTO) 40 /CMM (150-450)
[2018-04-05 05:01] LABS: MAGNESIUM 2.1 mg/dL (1.8-2.4); PHOSPHORUS 7.5 mg/dL (2.5-4.9)
[2018-04-05 05:16] LABS: LYMPHOCYTES % (MANUAL) 1 % (16-48); MONOCYTES % (MANUAL) 2 % (0-11.0); NEUTROPHILS % (MANUAL) 97 (42-76)
[2018-04-05] MEDS: IV NS 0.9% 1,000 ML IV PRN ×2 (06:13→23:24)
[2018-04-05] MEDS: NEPRO 1,000 ML BOTTLE GT PRN ×2 (06:13→23:24)
--- NOTE | 2018-04-05 07:00 | NUR ---
RN NOTES RECEIVED PT ON BED, INTUBATED 7.0 ETT SECURED AT 23CM AT THE LIP. PT TOLERATING CURRENT VENT SETTING WELL, ON TELE SR HR IN 70'S , MILVIA TO ABDOMEN INTACT , NEPRO AT 50CC/ HR RUNNING VIA OJ TUBE, TOLERATING WELL, NO RESIDUAL NOTED . NS AT 60CC/HR AND INSULIN GTT AT 2 UNITS/HR RUNNING VIA RIGHT UPPER ARM PICC LINE. SITE CLEAN , DRY AND INTACT, BED LOCKED AND IN LOWEST POSITION , CONTINUE TO MONITOR . Addendum: 04/05/18 at 1914 by MISHA DEAN RN CORRECTION , NEPRO IS RUNNING VIA OG TUBE ,
--- NOTE | 2018-04-05 07:10 | NUR ---
RT PATIENT REC'D ORALLY INTUBATED WITH A 7.0 ETT SECURED AT 23CM AT THE LIP. PATIENT HAS AN ORAL AIRWAY IN PLACE TO PREVENT HIM FROM BITING THE ETT. VENT SETTINGS CHECKED AND ALARMS CHECKED + AUDIBLE. CUFF PRESSURE CHECKED CERTIFIED SCRUB TECH. PATIENT SUCTIONED WITH MOD AMOUNT OF SANTIAGO SEMITHICK SECRETIONS. B/S COARSE. PATIENT NOT SEDATED, NOT RESPONSIVE TO VERBAL COMMANDS. AMBU BAG AT [facility]. CONT CURRENT PLAN OF RESP CARE Addendum: 04/05/18 at 1019 by SHADE THORNE RT Amended: Links added.
[2018-04-05 07:40] LABS: ABG BASE EXCESS -3.3 mmol/L; ABG OXYGEN SATURATION 95.7 % (92.0-98.5); ABG PCO2 35.3 mmHg (35.0-45.0); ABG PH 7.396 (7.350-7.450); ABG PO2 91.1 mmHg (75.0-100.0); AaDO2 153.5 mmHg; COHb 0.3 % (0.5-1.5); O2Hb 94.5 % (94.0-97.0); SITE, ABG Right Radial; VENT MODE, BG AC 12 550 40% +5
[2018-04-05 08:03] LABS: CALCIUM, SERUM 7.5 mg/dL (8.5-10.1); CREATININE 6.5 mg/dL (0.6-1.3); POTASSIUM 5.1 mmol/L (3.5-5.1)
[2018-04-05] MEDS: ALBUMIN 25% 25 GM in PREMIX 1 EA IV PRN (08:15)
--- NOTE | 2018-04-05 08:20 | NUR ---
JOB FOREMAN NOTE PT REMAINED STABLE DURING SHIFT. NO ACUTE DISTRESS NOTED. VENT SETTINGS WELL TOLERATED. SUCTIONED NEEDED. REPOSITIONED Q2H. WILL ENDORSE TO NEXT SHIFT FOR CONTINUITY OF CARE.
[2018-04-05] MEDS: DAKINS QUARTER STRENGTH (0.125%) 480 ML BOTTLE TOP SCH (09:20)
--- NOTE | 2018-04-05 09:35 | NUR ---
WOUND CARE CONSULT: PT ON DIALYSIS AT THIS TIME. UNABLE TO DO SKIN ASSESSMENT DUE TO DIALYSIS IN PROGRESS. PT FOLLOWED BY SURGICAL TEAM. WILL SEE PT PT CONDITION PERMITS. PT ON FIRST STEP CIRRUS LOW AIRLOSS MATTRESS. ALL SKIN PROTECTION MEASURES IN PLACE.
[2018-04-05] MEDS: PANTOPRAZOLE 40 MG VIAL IV SCH (10:07)
--- NOTE | 2018-04-05 12:00 | NUR ---
RAMIRO NOTES LURO AT 50CC/HR RUNNING VIA GT , NO RESIDUAL NOTED, CONTINUE TO MONITOR . Addendum: 04/05/18 at 1912 by MISHA DEAN RN CORRECTION , PT HAS OG TUBE,
[2018-04-05] MEDS: LEVOFLOXACIN 250 MG /D5W 50 ML 250 MG in PREMIX 1 EA IV SCH (16:07)
[2018-04-05] MEDS: CEFTRIAXONE 2 G in IV D5W 100 ML IV SCH (17:03)
--- NOTE | 2018-04-05 18:52 | NUR ---
RN NOTES ORAL SUCTION DONE, NO SIGNIFICANT CHANGES NOTED ON THIS SHIFT .INSULIN GTT AT 5 UNITS/ HR RUNNING VIA R UPPER ARM PICC LINE, SR UP x3, WILL ENDOSE TO [facility] SHIFT NURSE FOR CONTINUITY OF CARE .
--- NOTE | 2018-04-05 19:52 | NUR ---
RECEIVED PT INTUBATED 7.0 ETT SECURED AT 23CM AT THE LIP. PT TOLERATING VENT SETTINGS. SX'D FOR MOD AMT OF THICK SANTIAGO SECRETIONS. VENT ALARMS SET AND AUDIBLE. AMBU BAG AT BEDSIDE. VENT PLUGGED INTO RED OUTLET. WILL CONTINUE TO MONITOR. Addendum: 04/05/18 at 3 by HAVEN RIVERA RT Amended: Links added.
--- NOTE | 2018-04-05 19:56 | NUR ---
CARPENTERS SUPERVISOR. INITIAL ASSESSMENT. RECEIVED THE PT REST ON THE BED. ORALLY INTUBATED,. RESPONDING PAIN HOB ELEVATED. ETT 7.CM,LIP 23,AC 12,TV 550,FIO2 40%, PEEP 5. SAT 98%. NO ACUTE DISTRESS NOTED. PAINT MIXER HAND SHOWING NSR. IV RT FEMORAL HD CATH. RT UPPER ARM PICC LINE. IVF NS 60ML/H,INSULIN DRIP RUNNING. OGT INTACT. NEPRO 50ML/H. WILL CONTINUE TO MONITOR VITALS.
[2018-04-06] VITALS (38 sets, daily range): BP systolic 104–163; BP diastolic 64–95
[2018-04-06] MEDS: INS (REG) DRIP 100 U/100 ML NS IV PRN ×2 (01:00)
[2018-04-06] MEDS: BLOOD SUGAR DIAGNOSTIC 1 EACH STRIP IN SCH ×24 (01:01→23:52)
--- NOTE | 2018-04-06 03:13 | NUR ---
MOBILE PHONE SALESPERSON. AM CARE. ORAL CARE, BED BATH GIVEN. LINEN CHANGED. REMAINING SAME VENT SETTING ON. SAT 98%. SURGICAL APPLIANCE FITTER SHOWING NSR. IV RT UPPER ARM PICC LINE IVF NS 60ML/H. INSULIN DRIP PER PROTOCOL.OGT FEEDING TOLERATED WELL.ABDOMINAL DRESSING INTACT. RT SIDE MILVIA DRAIN INTACT, SEROUS FLUIDS DRAINING. HOB ELEVATED. TURN AND REPOSITION Q2H. WILL CONTINUE TO MONITOR VITALS.
[2018-04-06 05:07] LABS: BASOPHILS # (AUTO) 0.1 /CMM (0.0-0.2); BASOPHILS % (AUTO) 0.4 % (0.0-2.0); EOSINOPHILS % (AUTO) 0.4 % (0.0-6.0); HEMATOCRIT 22 % (39-51); HEMOGLOBIN 7.1 g/dL (13.5-17.5); LYMPHOCYTES # (AUTO) 0.3 /CMM (0.8-4.8); LYMPHOCYTES % (AUTO) 1.8 % (20.0-44.0); MEAN CORPUSCULAR HGB CONC 33 g/dl (31.0-36.0); MEAN CORPUSCULAR VOLUME 87 fL (80-96); MONOCYTES # (AUTO) 0.5 /CMM (0.1-1.30); MONOCYTES % (AUTO) 2.7 % (2.0-12.0); NEUTROPHILS # (AUTO) 17.2 /CMM (1.8-8.9); NEUTROPHILS % (AUTO) 94.7 % (43.0-81.0); PLATELET COUNT (AUTO) 57 /CMM (150-450); RED BLOOD CELL COUNT(AUTO) 2.48 MIL/uL (4.5-6.0); WHITE BLOOD COUNT (AUTO) 18.2 K/uL (4.3-11.0)
[2018-04-06 05:33] LABS: CALCIUM, SERUM 7.6 mg/dL (8.5-10.1); CREATININE 5.7 mg/dL (0.6-1.3); MAGNESIUM 2.1 mg/dL (1.8-2.4); PHOSPHORUS 6.9 mg/dL (2.5-4.9)
[2018-04-06 05:36] LABS: EOSINOPHILS % (MANUAL) 1 % (0-4); LYMPHOCYTES % (MANUAL) 1 % (16-48); MONOCYTES % (MANUAL) 2 % (0-11.0); NEUTROPHILS % (MANUAL) 96 (42-76)
--- NOTE | 2018-04-06 05:51 | NUR ---
SLOT MACHINE DEPARTMENT FLOORPERSON, OGT UBE RESIDUAL I 300ML NOW HELD, WILL CONTINUE TO MONITOR
--- NOTE | 2018-04-06 08:06 | NUR ---
RT PT RECEIVED ORALLY INTUBATED, 7.0 ETT SECURED AT 23CM AT THE LIP LINE. PT IS AWAKE BUT DOES NOT RESPOND TO COMMANDS, PT ON VENT WITH NOTED SETTINGS, VENT ALARMS SET AND AUDIBLE, VENT PLUGGED IN RED OUTLET, BVM AT BEDSIDE, PT SUCTIONED WITH MODERATE THICK PALE YELLOW SECRETIONS. NO SOB, NO RESPIRATORY DISTRESS NOTED AT THIS TIME, WILL CONTINUE TO MONITOR. Addendum: 04/06/18 at 1032 by ARNAUD HELM RT Amended: Links added.
--- NOTE | 2018-04-06 09:11 | NUR ---
WOUND CARE CONSULT/FOLLOWUP: PT SEEN FOR SACRAL DEEP TISSUE INJURY WHICH EXTENDS TO BILATERAL BUTTOCKS. DTI IS MAINLY INTACT WITH SMALL OPEN AREA WHICH IS PINK IN COLOR, NO DRAINAGE. RECOMMEND CONTINUE PRESENT WOUND TREATMENT. DISCUSSED WITH NURSING STAFF. PT ON FIRST STEP [employer] [facility] AIRLOSS MATTRESS. ALL SKIN PROTECTION MEASURES IN PLACE. WILL SEE PRN. BAZAN IN AGREEMENT WITH PLAN OF CARE. Addendum: 04/06/18 at 0913 by LYNDA ALEXIS WNDNU Amended: Links added.
[2018-04-06 09:14] LABS: ABG BASE EXCESS -2.6 mmol/L; ABG OXYGEN SATURATION 95.5 % (92.0-98.5); ABG PH 7.448 (7.350-7.450); ABG PO2 88.8 mmHg (75.0-100.0); AaDO2 160.8 mmHg; COHb 0.3 % (0.5-1.5); MetHb 1.4 % (0.0-1.5); O2Hb 93.9 % (94.0-97.0); SITE, ABG Left Radial; VENT MODE, BG AC 12 550 40% +5
[2018-04-06] MEDS: PANTOPRAZOLE 40 MG VIAL IV SCH (10:33)
[2018-04-06] MEDS: DAKINS QUARTER STRENGTH (0.125%) 480 ML BOTTLE TOP SCH (10:34)
[2018-04-06] MEDS: CEFTRIAXONE 2 G in IV D5W 100 ML IV SCH (16:17)
--- NOTE | 2018-04-06 18:51 | NUR ---
PATIENT CONTINUES OBTUNDED, OPENING EYES SPONTANEOUSLY BUT NOT TRACKING OR FOLLOWING COMMANDS. TUBE FEEDS ON HOLD DUE TO HIGH RESIDUALS, MD NOTIFIED. RESIDUALS >200 AT 8AM, AND OVER 100 AT NOON. TUBE FEEDS RESTARTED AT 1600 AFTER 30ML RESIDUAL. PATIENT CONTINUES ON INSULIN DRIP, BLOOD GLUCOSE OVER 200 WHILE NPO. ABDOMINAL INCISION DRESSING CHANGED PER ORDERS, WOUND APPEARS PINK, CLEAN WITH MINIMAL DRAINAGE. NO ODOR. SAFETY AND SKIN PRECAUTIONS MAINTAINED
[2018-04-06] MEDS: HYDROMORPHONE 1 MG/1 ML DISP.SYRIN IV PRN (22:12)
--- NOTE | 2018-04-06 23:12 | NUR ---
RT NOTE PT RCVD ORALLY INTUBATED 7.0 ETT SECURED AT 23CM @ LIP ON MECHANICAL VENT WITH CHARTED SETTINGS. PT TOLERATING VENT SETTINGS WELL. SX'D FOR MOD AMT OF THICK SANTIAGO SECRETIONS. VENT PLUGGED INTO RED OUTLET. VENT ALARMS ARE SET AND AUDIBLE. ETT CUFF CHECKED VIA PHYSICIAN GYNECOLOGIST. AMBU BAG AT BEDSIDE. WILL CONTINUE TO MONITOR. Addendum: 04/06/18 at 2313 by GARCIA VENTURA RT Amended: Links added.
[2018-04-07] VITALS (45 sets, daily range): BP systolic 80–184; BP diastolic 46–104
[2018-04-07] MEDS: BLOOD SUGAR DIAGNOSTIC 1 EACH STRIP IN SCH ×23 (00:33→23:00)
[2018-04-07 05:04] LABS: BASOPHILS # (AUTO) 0.1 /CMM (0.0-0.2); BASOPHILS % (AUTO) 0.5 % (0.0-2.0); EOSINOPHILS % (AUTO) 0.5 % (0.0-6.0); LYMPHOCYTES # (AUTO) 0.3 /CMM (0.8-4.8); LYMPHOCYTES % (AUTO) 2.4 % (20.0-44.0); MEAN CORPUSCULAR HGB CONC 33 g/dl (31.0-36.0); MEAN CORPUSCULAR VOLUME 87 fL (80-96); MONOCYTES # (AUTO) 0.5 /CMM (0.1-1.30); MONOCYTES % (AUTO) 3.8 % (2.0-12.0); NEUTROPHILS # (AUTO) 12.1 /CMM (1.8-8.9); NEUTROPHILS % (AUTO) 92.8 % (43.0-81.0); RED BLOOD CELL COUNT(AUTO) 2.15 MIL/uL (4.5-6.0)
[2018-04-07 05:23] LABS: CALCIUM, SERUM 7.2 mg/dL (8.5-10.1); CREATININE 6.6 mg/dL (0.6-1.3); POTASSIUM 5.2 mmol/L (3.5-5.1)
[2018-04-07 05:26] LABS: HEMATOCRIT 19 % (39-51); HEMOGLOBIN 6.2 g/dL (13.5-17.5)
[2018-04-07 05:27] LABS: PLATELET COUNT (AUTO) 45 /CMM (150-450)
--- NOTE | 2018-04-07 05:43 | NUR ---
NOTIFIED DR YORK OF CRITICAL VALUE H/H 6.2 AND PLT 45. RECEIVED ORDER TO GIVE 1 PRBC. READBACK ORDER PERFORMED AND WILL INPUT INTO COMPUTER.
[2018-04-07 06:16] LABS: EOSINOPHILS % (MANUAL) 1 % (0-4); LYMPHOCYTES % (MANUAL) 1 % (16-48); MONOCYTES % (MANUAL) 4 % (0-11.0); NEUTROPHILS % (MANUAL) 94 (42-76)
[2018-04-07] MEDS: IV NS 0.9% 1,000 ML IV PRN (07:05)
--- NOTE | 2018-04-07 07:20 | NUR ---
SUNDEEP RN NOTE: RECEIVED PATIENT INTUBATED AND LETHARGIC AT THIS TIME. NO SEDATION GIVEN. ON ETT INTUBATION VENT SETTING AC 12 TV 550 FIO2 40% PEEP 5. RESPIRATION EVEN AND UNLABORED. PATIENT RESPONSE TO LOCALIZED PAIN STIMULI ONLY. ON SINUS RHYTHM HR 85. (R) UPPER ARM PICC LINE WITH 3 LUMENS NOTED PATENT AND INTACT INFUSING NS @60ML/HR AND ON INSULIN DRIP @2UNIT/HR AND TITRATED PER INSULIN PROTOCOL ALGORITHM 2. ORAL GT FEEDING NOTED IN PLACED W/ NEPHRO @50ML/HR AND RESIDUAL WAS 55CC. (R) FEMORAL HD CATH NOTED WITH DRY DRESSING PATENT AND CLEAN. AWAITING FOR THE HEMODIALYSIS NURSE FOR TODAY. NO SIGNS OF DISCOMFORT NOTED. BED ALARMED AND LOCKED AT ALL TIMES. CALL LIGHT PLACED WITHIN REACH. NEEDS ANTICIPATED.
--- NOTE | 2018-04-07 08:30 | NUR ---
SUNDEEP RN NOTE: DR. PERKINS IN THE UNIT WANTED TO GET A HOLD OF THE PATIENT'S ADOPTIVE FATHER TORO IN ORDER TO SPEAK WITH HIM REGARDING TRACHEOSTOMY PLACEMENT. MD WAS ABLE TO SPEAK WITH THE FATHER OVER THE PHONE BUT THE FATHER DID NOT CONSENT FOR THE TRACHEOSTOMY PLACEMENT. PER MD WILL CONTINUE WITH FULL VENTILATOR SUPPORT.
[2018-04-07 08:35] LABS: ABG BASE EXCESS -4.2 mmol/L; ABG PCO2 29.8 mmHg (35.0-45.0); ABG PH 7.435 (7.350-7.450); ABG PO2 105.2 mmHg (75.0-100.0); AaDO2 145.7 mmHg; COHb 0.6 % (0.5-1.5); MetHb 1.2 % (0.0-1.5); O2Hb 95.3 % (94.0-97.0); PEEP,BG 5 cm H2O; SITE, ABG Right Radial; VT, ABG 550 mL
[2018-04-07] MEDS: DAKINS QUARTER STRENGTH (0.125%) 480 ML BOTTLE TOP SCH (09:57)
[2018-04-07] MEDS ORDERED: METOCLOPRAMIDE HCL 10 MG/2 ML VIAL IV PRN (10:30)
[2018-04-07] MEDS: PANTOPRAZOLE 40 MG VIAL IV SCH (11:05)
--- NOTE | 2018-04-07 15:13 | NUR ---
SUNDEEP RN NOTE: PATIENT WAS CURRENTLY RECEIVING HEMODIALYSIS AT THIS TIME AND 1 UNIT PRBC WAS TRANSFUSED WITH HD.
--- NOTE | 2018-04-07 15:45 | NUR ---
SUNDEEP RN NOTE: PATIENT STILL ON HD, BLOOD TRANSFUSION OF 1 UNIT PRBC DONE. WILL CONTINUE TO MONITOR FOR ANY ADVERSE REACTION.
[2018-04-07] MEDS: NEPRO 1,000 ML BOTTLE GT PRN (16:57)
[2018-04-07] MEDS: INS (REG) DRIP 100 U/100 ML NS IV PRN ×2 (17:11)
[2018-04-07] MEDS: CEFTRIAXONE 2 G in IV D5W 100 ML IV SCH (17:41)
--- NOTE | 2018-04-07 19:45 | NUR ---
SUNDEEP RN NOTE: PATIENT REMAINED ON STABLE CONDITION AT THIS TIME. HD WAS DONE AND 1500 ML OUTPUT WAS REMOVED. HD NURSE CHANGED THE DRESSING ON THE (R) FEMORAL HD CATHETER . REPORT WAS GIVEN TO PM SHIFT NURSE FOR CONTINUITY OF CARE AND SHOWED THE INSULIN DRIP ALGORITHM 2 BEING USED FOR THE PATIENT'S HOURLY BLOOD SUGAR CHECK. WOUND DRESSINGS WERE DONE.
--- NOTE | 2018-04-07 19:50 | NUR ---
BELLOWS ASSEMBLER OPENING NOTES RECEIVED REPOT FROM MITZY RUBIO. PATIENT OBTUNDED W/ LITTLE RESPONSE TO TACTILE STIMULI. BREATHING EVEN & UNLABORED W/ ETT INTACT & TOLERATING SETTINGS AC 12, TV 550, FIO2 40%, PEEP 5. NO RESPIRATORY DISTRESS NOTED. ON TELE W/ SINUS RHYTHM, HR 82. RIGHT UPPER ARM TLC PICC LINE INTACT & PATENT W/ DRESSING CDI & IVF NS INFUSING WELL @ 60 ML/HR & INSULIN DRIP @ 3ML/HR PER TITRATION PROTOCOL. LEFT & RIGHT FA IV SALINE LOCKED. RIGHT FEMORAL HD CATH W/ DRESSING CDI. G-TUBE FLUSHING WELL W/ GTF RUNNING @ 50 ML/HR. MINIMAL RESIDUAL NOTED. NO S/S OF PAIN OR DISCOMFORT @ THIS TIME. SAFETY MEASURES IN PLACE W/ SIDE RAILS & BED ALARM ON. WILL CONTINUE TO MONITOR CLOSELY. Addendum: 04/07/18 at 1956 by YENIFER DAVIS RN OG TUBE*
[2018-04-07] MEDS: HYDROMORPHONE 1 MG/1 ML DISP.SYRIN IV PRN (22:33)
--- NOTE | 2018-04-07 23:16 | NUR ---
LOSS PREVENTION GUARD NOTES NOTED PATIENT'S VENT ALARM GOING OFF & PATIENT BITING ON ETT TUBE. RT CALLED & NOTED ETT BALLOON POPPED. NOTIFIED DR YORK & RECEIVED ORDER TO RE-INTUBATE BY HERMINIA BAZAN. Addendum: 04/08/18 at 0426 by YENIFER DAVIS RN WRONG TIME DOCUMENTED. EVENT OCCURRED @ 2250 & RT PAGED.
[2018-04-07] MEDS: PROPOFOL 100 ML IV PRN (23:20)
--- NOTE | 2018-04-07 23:23 | NUR ---
GLASS CRUSHER NOTES 2300: 60 MG ROCURONIUM GIVEN PER ORDER OF DR BRYANT. 2308: PATIENT RE-INTUBATED BY DR BRYANT.
--- NOTE | 2018-04-07 23:23 | NUR ---
NAIL PULLER NOTES HISTORICAL ARCHEOLOGIST MAUREEN INFORMED DR YORK THAT PER DR BRYANT, PATIENT MIGHT BE IN POSSIBLE ARDS. DR YORK WILL COME & SEE PATIENT.
--- NOTE | 2018-04-07 23:47 | NUR ---
WHEEL OF FORTUNE DEALER NOTES PATIENT STILL NOTED TO DESAT AFTER RE-INTUBATION. 2338: PATIENT NOTED W/ PEA & FAHEEM GOOD CALLED IN THE PROCESS OF INTUBATION. SEE FURTHER DETAILS IN CODE BLUE SHEET. Addendum: 04/08/18 at 0436 by YENIFER DAVIS RN 2345: PATIENT SUCCESSFULLY REINTUBATED & SATING @ 100%.
[2018-04-08] VITALS (76 sets, daily range): BP systolic 67–152; BP diastolic 42–102
[2018-04-08] MEDS: NOREPINEPHRINE 16 MG in IV D5W 500 ML IV PRN (00:03)
[2018-04-08] MEDS: IV NS 0.9% 1,000 ML IV PRN ×2 (00:20→16:23)
[2018-04-08] MEDS: BLOOD SUGAR DIAGNOSTIC 1 EACH STRIP IN SCH ×16 (00:33→17:56)
[2018-04-08 04:46] LABS: BASOPHILS % (AUTO) 0.2 % (0.0-2.0); EOSINOPHILS % (AUTO) 0.1 % (0.0-6.0); HEMATOCRIT 23 % (39-51); HEMOGLOBIN 7.6 g/dL (13.5-17.5); LYMPHOCYTES # (AUTO) 0.3 /CMM (0.8-4.8); LYMPHOCYTES % (AUTO) 1.4 % (20.0-44.0); MEAN CORPUSCULAR HGB CONC 33 g/dl (31.0-36.0); MEAN CORPUSCULAR VOLUME 88 fL (80-96); MONOCYTES # (AUTO) 0.6 /CMM (0.1-1.30); MONOCYTES % (AUTO) 3.2 % (2.0-12.0); NEUTROPHILS # (AUTO) 18.3 /CMM (1.8-8.9); NEUTROPHILS % (AUTO) 95.1 % (43.0-81.0); PLATELET COUNT (AUTO) 58 /CMM (150-450); RED BLOOD CELL COUNT(AUTO) 2.58 MIL/uL (4.5-6.0); WHITE BLOOD COUNT (AUTO) 19.3 K/uL (4.3-11.0)
--- NOTE | 2018-04-08 05:17 | NUR ---
RT NOTES END OF SHIFT NOTES. PT RECEIVED ON VENT ON NOTED SETTINGS. VENT/ ALARMS ON AND AUDIBLE WITH AMBU BAG AT HOB. SX PRN MOD THICK YELLOW SECRETIONS. RN CALLED TO ASSESS PT AT 2250. NOTED PT ETT BALLOON COMPROMISED. DOCTOR REINTUBATED PT AT BEDSIDE AT 2308. RT/ RN/ DOCTOR AT BEDSIDE. AT 2338 CODE BLUE CALLED, AND PT CODED WITH CURRENT PROTOCOL GUIDELINES. PT REINTUBATED ONCE AGAIN AT 2345 WITH 6.5 ETT PROPERLY SECURED AT 23 CM LIP. CHEST RISE EQUAL/ BILAT WITH C02 COLOR CHANGE NOTED. PT PLACED BACK ON VENT ON NOTED SETTINGS. WILL CONT TO MONITOR PT FOR REST OF SHIFT.
[2018-04-08 05:27] LABS: CALCIUM, SERUM 7.3 mg/dL (8.5-10.1); CREATININE 5.8 mg/dL (0.6-1.3); POTASSIUM 5.2 mmol/L (3.5-5.1)
[2018-04-08 06:00] LABS: LYMPHOCYTES % (MANUAL) 2 % (16-48); MONOCYTES % (MANUAL) 2 % (0-11.0); NEUTROPHILS % (MANUAL) 96 (42-76)
[2018-04-08] MEDS: DAKINS QUARTER STRENGTH (0.125%) 480 ML BOTTLE TOP SCH (08:15)
[2018-04-08] MEDS: PANTOPRAZOLE 40 MG VIAL IV SCH (10:08)
--- NOTE | 2018-04-08 10:08 | NUR ---
RN NOTE 0720: Received patient obtunded, responds minimally to deep pain. With ETT to vent, no respiratory distress noted at this time. With NIRALI PICC intact. On Diprivan @ 5mcg, Levo @ 4mcg, NS @ 60, Insulin drip, will titrate meds as ordered. Abdominal Sx site with dressing CDI. MILVIA drain draining minimal amount of serous drainage. SR 90's on the monitor. 0730: Levo titrated off for SBP >90, will continue to monitor. 0800: Diprivan turned off for RR 22, no agitation noted at this time. With left NGT, held GT feeding for 150mL residuals. 0830: S/E by Dr. Manriquez, no new order at this time, still awaiting father's decision for trache. 0920: S/E by Dr. Gonzalez, no new order at this time. 1000: No any significant changes noted at this time. Will continue to monitor.
[2018-04-08 10:19] LABS: ABG BASE EXCESS -3.4 mmol/L; ABG OXYGEN SATURATION 97.7 % (92.0-98.5); ABG PCO2 37.5 mmHg (35.0-45.0); ABG PH 7.375 (7.350-7.450); ABG PO2 136.1 mmHg (75.0-100.0); AaDO2 322.7 mmHg; COHb 0.3 % (0.5-1.5); MetHb 0.9 % (0.0-1.5); O2Hb 96.5 % (94.0-97.0); SITE, ABG Right Radial; VENT MODE, BG AC 12 550 70%
--- NOTE | 2018-04-08 11:51 | NUR ---
RN NOTE 1120: Patient back from CT head, cleaned and changed linens, noted with ST 110's, positioned comfortably. Awaiting for CT result and EEG.
--- NOTE | 2018-04-08 14:57 | NUR ---
RN NOTE 1350: CT result relayed to Alejandro MOTA, no new order at this time. 1450: Spoke with Dr. Manriquez and ordered to DC insulin drip and change to aggressive SS. Spoke with Father, Julio C via phone and agreed for tracheostomy, made Dr. Gonzalez aware, said to inform Dr. Coulter. Spoke with Ludivina from Dr. Coulter's office. Awaiting for schedule. feed mill lab technician at bedside.
[2018-04-08] MEDS ORDERED: DEXTROSE 50%-WATER 50 ML DISP.SYRIN IV PRN (15:00)
--- NOTE | 2018-04-08 15:24 | NUR ---
RN NOTE S/E by Dr. Ricci, verbalized to obtain consent for PEG placement, spoke again with Julio C, father and given consent, witnessed by another nurse.
[2018-04-08] MEDS: CEFTRIAXONE 2 G in IV D5W 100 ML IV SCH (16:23)
[2018-04-08] MEDS: NEPRO 1,000 ML BOTTLE GT PRN (16:28)
[2018-04-08] MEDS: INSULIN REGULAR, HUMAN 100 UNIT/ML 3 ML VIAL SQ PRN (17:57)
--- NOTE | 2018-04-08 19:59 | NUR ---
RT NOTE PT RCVD ORALLY INTUBATED ON MECHANICAL VENT WITH CHARTED SETTINGS. PT TOLERATING VENT SETTINGS WELL. SX'D FOR MOD AMT OF THICK [place] SECRETIONS. VENT PLUGGED INTO RED OUTLET. VENT ALARMS ARE SET AND AUDIBLE. ETT CUFF CHECKED VIA [employer] TEACHER. AMBU BAG AT BEDSIDE. WILL CONTINUE TO MONITOR. Addendum: 04/08/18 at 1999 by BEN DEL VALLE RT Amended: Links added.
[2018-04-09] VITALS (30 sets, daily range): BP systolic 62–162; BP diastolic 35–91
[2018-04-09] MEDS: INSULIN REGULAR, HUMAN 100 UNIT/ML 3 ML VIAL SQ PRN (00:46)
[2018-04-09] MEDS: BLOOD SUGAR DIAGNOSTIC 1 EACH STRIP IN SCH ×3 (00:46→11:12)
[2018-04-09 05:45] LABS: CALCIUM, SERUM 7.1 mg/dL (8.5-10.1); CREATININE 6.7 mg/dL (0.6-1.3); POTASSIUM 5.8 mmol/L (3.5-5.1)
--- NOTE | 2018-04-09 06:00 | NUR ---
PT LEFT TO CT ABDOMEN WITHOUT CONTRAST. CHARGE NURSE AND RT AT BEDSIDE.
[2018-04-09 06:20] LABS: D-DIMER 11.92 mg/L(FEU (0.17-0.50)
[2018-04-09 06:38] LABS: BASOPHILS % (AUTO) 0.3 % (0.0-2.0); EOSINOPHILS % (AUTO) 0.9 % (0.0-6.0); HEMATOCRIT 21 % (39-51); LYMPHOCYTES # (AUTO) 0.3 /CMM (0.8-4.8); LYMPHOCYTES % (AUTO) 2.4 % (20.0-44.0); MEAN CORPUSCULAR HGB CONC 33 g/dl (31.0-36.0); MEAN CORPUSCULAR VOLUME 87 fL (80-96); MONOCYTES # (AUTO) 0.6 /CMM (0.1-1.30); MONOCYTES % (AUTO) 4.4 % (2.0-12.0); NEUTROPHILS # (AUTO) 11.6 /CMM (1.8-8.9); PLATELET COUNT (AUTO) 59 /CMM (150-450); RED BLOOD CELL COUNT(AUTO) 2.42 MIL/uL (4.5-6.0); WHITE BLOOD COUNT (AUTO) 12.6 K/uL (4.3-11.0)
--- NOTE | 2018-04-09 06:45 | NUR ---
PT RETURNED FROM CT IN NO ACUTE DISTRESS. AWAITING RESULTS.
--- NOTE | 2018-04-09 07:10 | NUR ---
RN INITIAL NOTES RECEIVED PT OBTUNDED. PT INTUBATED, ON VENT. NO RESPIRATORY DISTRESS NOTED. NO SOB NOTED. HOB ELEVATED. LEFT NARE NGT IN PLACE. GTF ON HOLD D/T RESIDUAL. WILL RECHECK. NIRALI PICC IN PLACE. IVF INFUSING. DRESSING ON ABDOMEN IN PLACE. MILVIA DRAIN IN PLACE. RIGHT FEMORAL HD CATH IN PLACE. PT CLEAN AND DRY. BLE ELEVATED. WILL MONITOR.
--- NOTE | 2018-04-09 08:03 | NUR ---
RT PT RECEIVED ORALLY INTUBATED WITH A 6.5 ETT SECURED AT 23CM AT THE LIP LINE. VENT ALARMS ARE SET AND AUDIBLE WITH BVM BY BEDSIDE. GRANITE BLOCK PAVER CUFF PRESSURE NOTED. VENT IS PLUGGED INTO RED OUTLET. SX'D MODERATE THICK PALE YELLOW SECRETIONS. Addendum: 04/09/18 at 1800 by VANIA RODRIGUEZ RT Amended: Links added.
[2018-04-09] MEDS: DAKINS QUARTER STRENGTH (0.125%) 480 ML BOTTLE TOP SCH (08:54)
--- NOTE | 2018-04-09 08:55 | NUR ---
RN NOTES SEEN AND EXAMINED BY DR PERKINS. PT REMAINS INTUBATED, ON VENT. REVIEWED CURRENT LAB VALUES AND IMAGING STUDIES. MD AWARE OF LATEST CXR AND CT ABDOMEN RESULT. PT ETT CHANGED 04/09. ORDERED RPT CXT AT 0900. WILL NOTIFY HIM FOR RESULT.
[2018-04-09 09:07] LABS: EOSINOPHILS % (MANUAL) 1 % (0-4); LYMPHOCYTES % (MANUAL) 4 % (16-48); MONOCYTES % (MANUAL) 3 % (0-11.0); NEUTROPHILS % (MANUAL) 92 (42-76)
[2018-04-09 09:51] LABS: ABG BASE EXCESS -7.1 mmol/L; ABG OXYGEN SATURATION 96.7 % (92.0-98.5); ABG PCO2 41.5 mmHg (35.0-45.0); ABG PH 7.281 (7.350-7.450); ABG PO2 110.6 mmHg (75.0-100.0); AaDO2 199.2 mmHg; COHb 0.1 % (0.5-1.5); MetHb 0.8 % (0.0-1.5); O2Hb 95.8 % (94.0-97.0); PEEP,BG 0 cm H2O; SITE, ABG Right Radial; VENT MODE, BG AC 12 550 50% +0; VT, ABG 550 mL
[2018-04-09] MEDS: IV NS 0.9% 1,000 ML IV PRN (09:52)
[2018-04-09] MEDS ORDERED: EPINEPHRINE (1:10,000) SYRINGE 1 MG/10 ML DISP.SYRIN IVP ONE ×2 (10:08→17:01)
--- NOTE | 2018-04-09 10:15 | NUR ---
RN NOTES 0953 DR PERKINS AWARE OF ABG RESULT. NO CHANGES. WILL MONITOR 1000 SEEN AND EXAMIN[address] MEDINA. PT REMAINS INTUBATED, ON VENT. AWARE OF LABS FOLLOWS: WBC 12.6, HGB 7, HCT 21, PLATELET 59. NO SIGNS OF BLEEDING NOTED. POTASSIUM 5.8, BUN 101, CREA 6.7. MD ALSO AWARE OF CT ABDOMEN AND CXR RESULT. PT FOR RPT CXR PER DR PERKINS. PT FOR TRACH AND PEG PLACEMENT. POSSIBLE TRACH PLACEMENT LISA BY DR GARCIA. WILL CONTINUE TO MONITOR
[2018-04-09] MEDS: PANTOPRAZOLE 40 MG VIAL IV SCH (10:48)
[2018-04-09 12:08] LABS: PEEP,BG 0 cm H2O
[2018-04-09] MEDS: ALBUMIN 25% 25 GM in PREMIX 1 EA IV PRN (13:58)
--- NOTE | 2018-04-09 15:10 | NUR ---
RN NOTES 1300 HD STARTED. VS WNL. WILL MONITOR 1505 PT WENT BRADYCARDIC 47 AND HYPOTENSIVE, 67/51. HD STOPPED. REMOVED 1800ML TOTAL. VS AT 1507 WAS HR 64, BP 81/48. WILL MONITOR
[2018-04-09] MEDS: IPRATROPIUM NEB FS 0.5 MG/2.5 ML AMPUL.NEB NEB SCH ×2 (15:18→19:30)
[2018-04-09] MEDS ORDERED: ALBUMIN 25% 25 GM in PREMIX 1 EA IV PRN (15:30)
[2018-04-09] MEDS ORDERED: LEVOFLOXACIN 500 MG /D5W 100ML 500 MG in PREMIX 1 EA IV SCH (15:30)
[2018-04-09 15:36] LABS: SITE, ABG Right Radial
[2018-04-09 15:37] LABS: ABG OXYGEN SATURATION 94.4 % (92.0-98.5); ABG PCO2 47.4 mmHg (35.0-45.0); ABG PH 7.206 (7.350-7.450); ABG PO2 91.7 mmHg (75.0-100.0); AaDO2 211.5 mmHg; COHb 0.6 % (0.5-1.5); MetHb 0.7 % (0.0-1.5); O2Hb 93.2 % (94.0-97.0); VT, ABG 550 mL
[2018-04-09 15:40] LABS: ABG BASE EXCESS -7.2 mmol/L; ABG OXYGEN SATURATION 97.2 % (92.0-98.5); ABG PCO2 36.6 mmHg (35.0-45.0); ABG PH 7.316 (7.350-7.450); AaDO2 199.3 mmHg; COHb 0.3 % (0.5-1.5); MetHb 0.4 % (0.0-1.5); O2Hb 96.5 % (94.0-97.0); PEEP,BG 0 cm H2O; SITE, ABG Right Radial; VT, ABG 600 mL
--- NOTE | 2018-04-09 16:16 | NUR ---
RN NOTES CODE LATISHA CALLED. PLEASE REFER TO CODE BLUE SHEET Addendum: 04/09/18 at 1655 by CORTNEY LUDWIG RN 1634 CODE LATISHA CALLED. PLEASE REFER TO CODE BLUE SHEET Addendum: 04/09/18 at 1727 by CORTNEY LUDWIG RN 1700 CODE LATISHA CALLED. PLEASE REFER TO CODE BLUE SHEET
[2018-04-09] MEDS: NOREPINEPHRINE 16 MG in IV D5W 500 ML IV PRN (16:53)
[2018-04-09] MEDS ORDERED: ATROPINE SULFATE 1 MG/10 ML DISP.SYRIN IV ONE (17:01)
[2018-04-09] MEDS ORDERED: SODIUM BICARBONATE SYR 50 MEQ/50 ML DISP.SYRIN IV ONE (17:01)
--- NOTE | 2018-04-09 17:34 | NUR ---
RN NOTES 1702 PT . PRONOUNCED BY DR BROCK. BILATERAL PUPILS, FIXED AND DILATED. NO SPONTANEOUS BREATHING NOTED. NO PALPABLE PULSE NOTED. TORO BAH (DAD) NOTIFIED. [facility] CALLED AT 1730. SPOKE WITH FELECIA. PERTINENT INFORMATION GIVEN. WILL CALL BACK FOR FURTHER QUESTIONS. REFERRAL # [id number]
--- NOTE | 2018-04-09 18:00 | NUR ---
RN NOTES SPOKE WITH AMINAH FROM [facility]. NOT APPROPRIATE FOR ORGAN DONATION. CASE #[id number]
--- NOTE | 2018-04-09 18:45 | NUR ---
RN NOTES BROUGHT TO [facility] BY 2 SECURITY GUARDS. PERSONAL BELONGINGS LEFT TO DAYANARA (STEEP TENDER)
== END 2018-04-09 17:02 | disposition expired | DRG 710 ==
LOC: ER 14:22 → ICU 17:09
PROVIDERS: ADMIT Internal Medicine; ATTEND Internal Medicine
PROC: 0KBK0ZZ Excision of Right Abdomen Muscle, Open Approach (ICD-10-PCS; 2018-03-25)
PROC: 30233R1 Transfusion of Nonautologous Platelets into Peripheral Vein, Percutaneous Approach (ICD-10-PCS; principal; 2018-03-25 18:00)
PROC: 0BH17EZ Insertion of Endotracheal Airway into Trachea, Via Natural or Artificial Opening (ICD-10-PCS; principal; 2018-03-25 18:00)
PROC: 5A1955Z Respiratory Ventilation, Greater than 96 Consecutive Hours (ICD-10-PCS; principal; 2018-03-25 18:00)
PROC: B548ZZA Ultrasonography of Superior Vena Cava, Guidance (ICD-10-PCS; 2018-03-26)
PROC: 02HV33Z Insertion of Infusion Device into Superior Vena Cava, Percutaneous Approach (ICD-10-PCS; 2018-03-26)
PROC: 5A1D70Z Performance of Urinary Filtration, Intermittent, Less than 6 Hours Per Day (ICD-10-PCS; 2018-03-26)
PROC: 0JHL3XZ Insertion of Tunneled Vascular Access Device into Right Upper Leg Subcutaneous Tissue and Fascia, Percutaneous Approach (ICD-10-PCS; 2018-03-28)
PROC: B54BZZA Ultrasonography of Right Lower Extremity Veins, Guidance (ICD-10-PCS; 2018-03-28)
PROC: 30233K1 Transfusion of Nonautologous Frozen Plasma into Peripheral Vein, Percutaneous Approach (ICD-10-PCS; 2018-03-28)
PROC: 06HM33Z Insertion of Infusion Device into Right Femoral Vein, Percutaneous Approach (ICD-10-PCS; 2018-03-28)
PROC: 5A1D70Z Performance of Urinary Filtration, Intermittent, Less than 6 Hours Per Day (ICD-10-PCS; 2018-04-01)
PROC: 5A1D70Z Performance of Urinary Filtration, Intermittent, Less than 6 Hours Per Day (ICD-10-PCS; 2018-04-02)
PROC: 30233N1 Transfusion of Nonautologous Red Blood Cells into Peripheral Vein, Percutaneous Approach (ICD-10-PCS; 2018-04-07)
PROC: 5A1D70Z Performance of Urinary Filtration, Intermittent, Less than 6 Hours Per Day (ICD-10-PCS; 2018-04-07)
PROC: 5A2204Z Restoration of Cardiac Rhythm, Single (ICD-10-PCS; 2018-04-08)
DX: A41.89 Other specified sepsis (principal); I21.A1 Myocardial infarction type 2; D65 Disseminated intravascular coagulation [defibrination syndrome]; J96.00 Acute respiratory failure, unspecified whether with hypoxia or hypercapnia; E43 Unspecified severe protein-calorie malnutrition; J85.1 Abscess of lung with pneumonia; J90 Pleural effusion, not elsewhere classified; D61.818 Other pancytopenia; K65.1 Peritoneal abscess; M72.6 Necrotizing fasciitis; N17.0 Acute kidney failure with tubular necrosis; R65.21 Severe sepsis with septic shock; G92 Toxic encephalopathy; E11.10 Type 2 diabetes mellitus with ketoacidosis without coma; D64.9 Anemia, unspecified; L02.211 Cutaneous abscess of abdominal wall; N30.90 Cystitis, unspecified without hematuria; E11.52 Type 2 diabetes mellitus with diabetic peripheral angiopathy with gangrene; E87.1 Hypo-osmolality and hyponatremia; N40.0 Benign prostatic hyperplasia without lower urinary tract symptoms; R13.10 Dysphagia, unspecified; Z99.2 Dependence on renal dialysis; Z91.19 Patient's noncompliance with other medical treatment and regimen; Z79.4 Long term (current) use of insulin; Z68.27 Body mass index [BMI] 27.0-27.9, adult; B96.1 Klebsiella pneumoniae [K. pneumoniae] as the cause of diseases classified elsewhere; F14.21 Cocaine dependence, in remission; L02.416 Cutaneous abscess of left lower limb; T38.0X5A Adverse effect of glucocorticoids and synthetic analogues, initial encounter; Y92.9 Unspecified place or not applicable; J98.4 Other disorders of lung
CPT/HCPCS: 31720; 36415; 36569; 36600; 70450-TC; 71045-TC; 80048-TC; 80053-TC; 80061-TC; 80076-TC; 80202-TC; 80305; 81000-TC; 82140-TC; 82272-TC; 82533; 82728-TC; 82784; 82803-TC; 82962-TC; 83540-TC; 83605-TC; 83735-TC; 84100-TC; 84155; 84165; 84439-TC; 84443-TC; 84478-TC; 84484-TC; 85025-TC; 85396; 85610-TC; 85730-TC; 86334; 86850-TC; 86921-TC; 87040-TC; 87070-TC; 87081-TC; 87086-TC; 87186-TC; 87806; 88305-TC; 88312-TC; 90935-TC; 92950-TC; 93307-TC; 93970-TC; 94003-TC; 94760-TC; 95819-TC; 99082-TC; A4216; A4217; A4606; A6253; A6402; A6403; A6407; C1750; C1751; C9113; G0378; G0480; J0171; J0330; J0461; J0696; J1170; J1720; J1815; J1956; J2185; J2248; J2250; J2543; J2704; J3010; J3370; J3430; J3490; J7030; J7040; J7042; J7050; J7060; J7120; P9016-BL; P9017-BL; P9034-BL; P9047; Z7610